=== PATIENT | male | born 1950 | race Caucasian/White ===

== ENCOUNTER 2019-10-30 15:49 | Inpatient (IN) ==
--- OUTSIDE RECORDS SUMMARY | 2019-10-30 15:53 | External Medical Summary | Continuity of Care Document ---
:1950 Author Name Julio M.Mike Address Unavailable Unavailable , Care Team Providers Name Role Phone Unavailable Unavailable Unavailable PCP, UNKNOWN Unavailable Unavailable Assessments Assessed Problems:Encounter for preventive health examination Problems Diverticulosis (562.10) (K57.90) Colon polyps (211.3) (K63.5) Allergies and Adverse Reactions Allergy history not documented Medications Medications not documented Procedures Procedures not documented Immunizations Immunizations not documented Plan of Treatment Planned Observations Planned Goals not documented Results No Known Results Results not documented
[2019-10-30] MEDS ORDERED: SODIUM CHLORIDE 0.9% 1000ML 500 ML IV ONE (17:03)
--- NOTE | 2019-10-30 17:05 | Emergency Department Note ---
Impression & Plan Acetabular fracture, Pelvic fracture, Rib fracture, Hemorrhage, peritoneal ED Provider Note Provider: Osman Thayer MD DATE OF SERVICE: 10/30/2019 CHIEF COMPLAINT: Fall HISTORY OF PRESENT ILLNESS: Patient is a 69-year-old gentleman history of hypothyroidism and hypertension presenting today after any foot fall from a ladder via ambulance. Patient states he was trimming branches and a branch fell knocked him off the ladder to the ground. About 8 to 9 feet he says. Does not member strike his head but states his glasses are been. Denies headache or visual change. States the c-collar is long comfortably denies neck pain. Complaining of left hip pain. Denies use of anticoagulants. Does report aspirin usage. Denies head neck or back pain at this time. Patient states he ell on his right side again is having left hip pain 8 out of 10 with movement. Not at rest. Pain is been left inguinal area. Denies injury to the knees calves or feet. Denies numbness in the lower extremities. Denies abdominal pain or shortness of breath. Patient does report a bit of right slight axillary discomfort on palpation. REVIEW OF SYSTEMS: A total of 10 review of systems was obtained and negative except as stated above in the HPI. PAST MEDICAL HISTORY: As noted above MEDICATIONS: Reviewed list includes aspirin SOCIAL HISTORY: , former smoker, lives at home PHYSICAL EXAM: GENERAL: alert and oriented in no acute distress on stretcher in c-collar Head: normocephalic and atraumatic EYES: No injection, discharge or icterus. PERRL NECK: Trachea midline. Supple. In c-collar without posterior midline tenderness. ENT: Mucous membranes pink and moist. No obvious dental injury. LUNGS: Airway patent. No retractions. Breath sounds clear HEART: Regular rate and rhythm. No chest wall tenderness ABDOMEN: Soft and non-tender, without guarding or rebound. SKIN: Acyanotic, warm, dry, without rashes EXTREMITIES: Without swelling, tenderness or deformity except with ROM of the left lower extremity with pain in left inguinal region NEUROLOGICAL: No focal deficits. No aphasia. No facial droop or slurred speech. CONTINUOUS CARDIAC MONITORING: was ordered and showed a heart rate of 82 bpm in normal sinus rhythm Patient's hypertension was referred to the hospitalist PDMP was checked without noted issue. GCS 15. HOSPITAL COURSE: 1652 Patient was first seen and H&P performed. 1907 patient reassessed and complained of little bit of right lower chest wall pain. Updated on CT findings. [address] Wesley who recommended a CT of the hip and medical admission and he would see them tomorrow. 1929 Patient reassessed and updated. Patient was agreed with this plan. Discussed with him utilizing some Tylenol for pain. 1954 discussed with the hospitalist. Patient's laboratory studies and imaging reviewed. Differential includes Fracture, dislocation, contusion, intra-abdominal, pneumothorax, intrathoracic, intracranial, neurologic, compartment syndrome, rhabdomyolysis, as well as other pathologies. IMPRESSION/MEDICAL DECISION MAKING: Patient presents after mechanical fall when he was struck by a limb. Little discomfort to the c-collar but denies neck pain. Denies head pain but is on aspirin. States his glasses were bent and given this CT the head and neck were completed. Significant pain in the left inguinal region prickly with movement. Good range of motion I doubt dislocation of the hip. Lower suspicion for fracture here as there is no obvious deformity of the left lower extremity. X- ray was obtained through here. CT abdomen pelvis obtained to look for possible occult intra-abdominal pathology. Chest x-ray obtained and have a lower suspicion for pneumo or hemothorax. Doubt acute cardiac or blunt injury. Basic labs were obtained. No significant pain rest and location of the left inguinal region of the pain without masses somewhat concerning for possible musculoskeletal injury. Denies any pain at rest only with movement and thus did not request pain medication at the initial evaluation time. Labs with borderline anemia. Slight leukocytosis 12.6 of unclear etiology is noted. No significant lecture that of maldescent or renal dysfunction. AST slightly elevated. No evidence of bilirubin elevation or ALT alk phos elevation. CT then cervical spine likely without acute traumatic injury noted. CT the abdomen pelvis shows evidence of nondisplaced right eighth ninth rib fractures and a mildly displaced left posterior 12th rib fracture. Patient is satting well. Vertical and comminuted fracture of left sacral roberth is noted left superior and inferior pubic ring fractures that extend through the medial wall the less acetabulum. Some intrapelvic but extraperitoneal hemorrhage around the pubic ring fractures are noted without evidence of active extravasation. Some mild intramuscular hemorrhage left without active extravasation is noted on the CT per the report as well. On reassessment patient was updated. Declined pain medication at this time but states again he was having little bit more of right lower chest wall pain. Discussed orthopedics who felt comfortable evaluating the acetabular fracture and pelvic fracture here. Believe we can monitor his hemoglobin here regarding the pelvic hematoma at this time and discussed with hospitalist DIAGNOSIS: Fall, multiple closed rib fractures, pelvic fracture, acetabular fracture DISPOSITION: Admission Past Med/Surg History Medical History (Updated 10/30/19 @ 23:12 by Dalila Reed RN) DVT (deep venous thrombosis) HTN (hypertension) Syncopal episodes Social History Preferred Language: Tajik Communication Ability: Effective Lead Radiologic Technologist Required: No Beliefs That Will Affect Care: None Current Living Situation: Spouse Other Information That Helps Us Care for You: No Feels Safe at Home: Yes Safety Concerns: Feels Safe At This Time Smoking Status: Former smoker Hx Alcohol Use: Yes Alcohol type: beer, wine and hard liquor Hx Substance Use: No Allergies Allergies Allergy/AdvReac Type Severity Reaction Status Date / Time No Known Allergies Allergy Verified 10/30/19 16:39 Home Meds Home Medications Medication Instructions Recorded Confirmed ascorbic acid (vitamin C) [Vitamin 1,000 mg PO DAILY 10/30/19 10/30/19 C] aspirin 650 mg PO DIRECTED PRN 10/30/19 10/30/19 aspirin 650 mg PO HS 10/30/19 10/30/19 calcium carbonate [Calcium 600] 600 mg PO BID 10/30/19 10/30/19 cholecalciferol (vitamin D3) 2,000 mcg PO DAILY@1200 10/30/19 10/30/19 [Vitamin D3] glucosamine sulfate [Glucosamine] 2,000 mg PO DAILY@1200 10/30/19 10/30/19 hydrochlorothiazide 12.5 mg PO QAM 10/30/19 10/30/19 ibuprofen 600 mg PO QAM 10/30/19 10/30/19 levothyroxine 112 mcg PO QAM 10/30/19 10/30/19 lisinopril 5 mg PO QAM 10/30/19 10/30/19 lutein 20 mg PO DAILY 10/30/19 10/30/19 omega 5-hdc-hsc-fish oil [Fish Oil] 1 cap PO DAILY 10/30/19 10/30/19 sildenafil 100 mg PO DAILY PRN 06/19/20 06/19/20 vitamin E 400 unit PO DAILY 10/30/19 10/30/19 Results & Data (ED) Vital Signs Vital Signs - 24 hr 10/30/19 15:56 10/30/19 15:59 10/30/19 16:00 Temperature Temperature Source Pulse Rate 73 69 75 Pulse Rate from SpO2 Sensor 73 71 74 Respiratory Rate 17 16 18 Respiratory Effort / Characteristics Respiratory Depth Respiratory Pattern Blood Pressure 140/83 Blood Pressure Mean 95 Blood Pressure Position Pulse Oximetry 98 97 97 Oxygen Delivery Method Sepsis Recent Fever Within 48 Hours Sepsis New/Unexplained Change in Mental Status Sepsis Action Taken by Nursing 10/30/19 16:06 10/30/19 16:30 10/30/19 17:00 Temperature 36.9 C Temperature Source Oral Pulse Rate 71 75 70 Pulse Rate from SpO2 Sensor 76 71 Respiratory Rate 18 17 12 Respiratory Effort / Characteristics Non-Labored Spontaneous Respiratory Depth Normal Respiratory Pattern Regular Blood Pressure 140/83 Blood Pressure Mean 102 Blood Pressure Position Lying Pulse Oximetry 98 98 99 Oxygen Delivery Method Room Air Sepsis Recent Fever Within 48 Hours No Sepsis New/Unexplained Change in Mental Status No Sepsis Action Taken by Nursing No Action Required 10/30/19 17:16 10/30/19 17:30 10/30/19 17:31 Temperature Temperature Source Pulse Rate 71 70 70 Pulse Rate from SpO2 Sensor 72 67 67 Respiratory Rate 15 12 13 Respiratory Effort / Characteristics Respiratory Depth Respiratory Pattern Blood Pressure 143/85 H 136/82 Blood Pressure Mean 107 111 Blood Pressure Position Pulse Oximetry 99 99 99 Oxygen Delivery Method Room Air Sepsis Recent Fever Within 48 Hours Sepsis New/Unexplained Change in Mental Status Sepsis Action Taken by Nursing 10/30/19 17:32 10/30/19 18:15 10/30/19 18:30 Temperature Temperature Source Pulse Rate 66 79 74 Pulse Rate from SpO2 Sensor 62 76 75 Respiratory Rate 15 19 18 Respiratory Effort / Characteristics Respiratory Depth Respiratory Pattern Blood Pressure 156/91 H Blood Pressure Mean 102 Blood Pressure Position Pulse Oximetry 99 99 100 Oxygen Delivery Method Sepsis Recent Fever Within 48 Hours Sepsis New/Unexplained Change in Mental Status Sepsis Action Taken by Nursing 10/30/19 19:01 10/30/19 19:31 10/30/19 20:01 Temperature Temperature Source Pulse Rate 76 76 80 Pulse Rate from SpO2 Sensor 77 76 79 Respiratory Rate 18 13 14 Respiratory Effort / Characteristics Respiratory Depth Respiratory Pattern Blood Pressure 156/87 H 159/77 H 132/84 Blood Pressure Mean 132 109 105 Blood Pressure Position Pulse Oximetry 100 99 98 Oxygen Delivery Method Room Air Room Air Room Air Sepsis Recent Fever Within 48 Hours Sepsis New/Unexplained Change in Mental Status Sepsis Action Taken by Nursing 10/30/19 20:31 Temperature Temperature Source Pulse Rate 75 Pulse Rate from SpO2 Sensor 76 Respiratory Rate 19 Respiratory Effort / Characteristics Respiratory Depth Respiratory Pattern Blood Pressure 151/80 H Blood Pressure Mean 87 Blood Pressure Position Pulse Oximetry 100 Oxygen Delivery Method Room Air Sepsis Recent Fever Within 48 Hours Sepsis New/Unexplained Change in Mental Status Sepsis Action Taken by Nursing Laboratory Data Result diagrams: 10/30/19 17:14 10/30/19 17:14 Lab Results 10/30/19 10/30/19 10/30/19 Range/Units 17:14 17:14 17:14 WBC 12.63 H (4.8-10.8) K/uL RBC 4.21 L (4.7-6.1) M/uL Hgb 13.6 L (14.0-18.0) g/dL Hct 40.3 L (42-52) % MCV 95.7 (80-100) fL MCH 32.3 (25-34) pg MCHC 33.7 (32-36) g/dL RDW Std Deviation 47.1 H (36.4-46.3) fL RDW Coeff of Celestino 13.4 (11.5-14.5) % Plt Count 188 (130-400) K/uL MPV 10.2 (7.4-10.4) fL Immature Gran % (Auto) 0.7 % Neut % (Auto) 86.0 % Lymph % (Auto) 5.0 % [place] % (Auto) 7.2 % Eos % (Auto) 0.9 % Baso % (Auto) 0.2 % Immature Gran # (Auto) 0.09 H (0.00-0.02) K/uL Neut # (Auto) 10.86 H (1.4-6.5) K/uL Lymph # (Auto) 0.63 L (1.2-3.4) K/uL [place] # (Auto) 0.91 H (0.11-0.59) K/uL Eos # (Auto) 0.11 (0-0.5) K/uL Baso # (Auto) 0.03 (0-0.2) K/uL PT 10.9 (9.0-12.0) Seconds INR 1.0 (0.9-1.1) Sodium 141 (136-145) mmol/L Potassium 3.5 (3.5-5.1) mmol/L Chloride 109 H (98-107) mmol/L Carbon Dioxide 25 (21-32) mmol/L Anion Gap 7.0 (3-11) BUN 17 (7-18) mg/dl Creatinine 0.92 (0.6-1.4) mg/dl Est Cr Clr Drug Dosing 76.0 ml/min Est GFR ( Amer) 96.6 Est GFR (Non-Af Amer) 83.4 BUN/Creatinine Ratio 18.7 (10-20) Glucose 107 H (70-99) mg/dl Calcium 8.8 (8.5-10.1) mg/dl Total Bilirubin 0.5 (0.2-1) mg/dl AST 77 H (15-37) U/L ALT 64 (12-78) U/L Alkaline Phosphatase 67 (45-117) U/L Total Protein 7.4 (6.4-8.2) gm/dl Albumin 3.7 (3.4-5.0) gm/dl Globulin 3.7 (2.5-4.0) gm/dl Albumin/Globulin Ratio 1.0 (0.9-2) Administered Medications Acetaminophen (Ofirmev) 1,000 mg IV Q8H DEE Stop: 11/02/19 20:59 Last Admin: 10/30/19 21:30 Dose: Not Given Documented by: [id number] Sodium Chloride (Nss 1000ml) 1,000 mls @ 125 mls/hr IV .Q8H DEE Stop: 11/29/19 20:59 Last Admin: 10/30/19 22:47 Dose: 125 mls/hr Documented by: [id number] Ioversol (Optiray 320 100ml) 94 ml IV ONCE PRN PRN Reason: Interaction Checking Stop: 11/03/19 17:58 Last Admin: 10/30/19 18:00 Dose: 94 ml Documented by: [id number] Discontinued Medications Acetaminophen (Tylenol) 1,000 mg PO NOW STA Stop: 10/30/19 19:59 Last Admin: 10/30/19 20:04 Dose: 1,000 mg Documented by: [id number] Sodium Chloride (Nss 1000ml) 500 mls @ 999 mls/hr IV .Q31M ONE Stop: 10/30/19 17:33 Last Infusion: 10/30/19 17:57 Dose: 0 mls/hr Documented by: [id number] Admin: 10/30/19 17:18 Dose: 999 mls/hr Documented by: [id number] Desmopressin Acetate 20 mcg/ (Sodium Chloride) 55 mls @ 100 mls/hr IV NOW STA Stop: 10/30/19 21:21 Last Infusion: 10/30/19 22:12 Dose: 0 mls/hr Documented by: [id number] Admin: 10/30/19 21:33 Dose: 100 mls/hr Documented by: [id number] Discharge Plan Visit Data *Final* Discharge Date/Time: 10/30/19 22:13 Chief Complaint: Fall Stated Complaint: FALL 8' FROM LADDER, L HIP PAIN ED Provider: Osman Thayer Discharge Problem: Acetabular fracture, Pelvic fracture, Rib fracture, Hemorrhage, peritoneal Patient Disposition: Admitted As Inpatient Discharge Instructions Interventions: ED Discharge Assessment Last Done: 10/30/19 22:13 Discharge Problem: Acetabular fracture Qualifiers: Encounter type: initial encounter Sublocation of acetabulum: medial wall Fracture type: closed Fracture alignment: nondisplaced Laterality: left Qualified Code(s): S32.475A - Nondisplaced fracture of medial wall of left acetabulum, initial encounter for closed fracture Pelvic fracture Qualifiers: Encounter type: initial encounter Pelvic bone location: multiple parts Fracture type: closed Fracture alignment: without disruption of pelvic ring Qualified Code(s): S32.82XA - Multiple fractures of pelvis without disruption of pelvic ring, initial encounter for closed fracture Rib fracture Qualifiers: Encounter type: initial encounter Rib fracture type: multiple ribs Fracture type: closed Laterality: bilateral Qualified Code(s): S22.43XA - Multiple fractures of ribs, bilateral, initial encounter for closed fracture
[2019-10-30 17:25] LABS: Basophils # (auto) 0.03 K/uL (0-0.2); Basophils % (auto) 0.2 %; Eosinophils # (auto) 0.11 K/uL (0-0.5); Eosinophils % (auto) 0.9 %; Hematocrit (blood only) 40.3 % (42-52); Hemoglobin 13.6 g/dL (14.0-18.0); Immature Granulocytes # (auto) 0.09 K/uL (0.00-0.02); Immature Granulocytes % (auto) 0.7 %; Lymphocytes # (auto) 0.63 K/uL (1.2-3.4); Mean Corpuscular Hemoglobin 32.3 pg (25-34); Mean Corpuscular Hgb Conc 33.7 g/dL (32-36); Mean Corpuscular Volume 95.7 fL (80-100); Mean Platelet Volume 10.2 fL (7.4-10.4); Monocytes # (auto) 0.91 K/uL (0.11-0.59); Monocytes % (auto) 7.2 %; Neutrophils # (auto) 10.86 K/uL (1.4-6.5); Platelet Count 188 K/uL (130-400); RDW Coefficient of Variation 13.4 % (11.5-14.5); RDW Standard Deviation 47.1 fL (36.4-46.3); Red Blood Count 4.21 M/uL (4.7-6.1); White Blood Count 12.63 K/uL (4.8-10.8)
[2019-10-30 17:36] LABS: Prothrombin Time 10.9 Seconds (9.0-12.0)
[2019-10-30 17:42] LABS: Albumin Level 3.7 gm/dl (3.4-5.0); BUN Creatinine Ratio 18.7 (10-20); Calcium 8.8 mg/dl (8.5-10.1); Est GFR (African American) 96.6; Est GFR (Non-African American) 83.4; Potassium 3.5 mmol/L (3.5-5.1)
[2019-10-30 17:45] LABS: Bilirubin,Total 0.5 mg/dl (0.2-1); Globulin 3.7 gm/dl (2.5-4.0); Total Protein 7.4 gm/dl (6.4-8.2)
[2019-10-30] MEDS ORDERED: IOVERSOL 100ml IV PRN (17:59)
--- NOTE | 2019-10-30 18:27 | CT Scan Report ---
CT SCAN OF THE BRAIN WITHOUT IV CONTRAST CLINICAL HISTORY: Fall. Headache. COMPARISON STUDY: No priors. TECHNIQUE: Unenhanced axial CT scan of the brain is performed from the vertex to the skull base. A do se lowering technique was utilized adhering to the principles of ALARA. FINDINGS: Brain parenchyma: There are age-related involutional changes noting minimal subcortical and perivent ricular microangiopathic change. There is no hemorrhage, mass effect, or evidence of acute territoria l ischemia by CT criteria. Pichardo-white matter differentiation is preserved. No extra-axial fluid colle ction is seen. Ventricles, sulci, cisterns: Prominent secondary to involutional change. Intracranial vasculature: There is atherosclerotic calcification of the cavernous carotid and vertebr al arteries. Calvarium: The skeletal structures are osteopenic. No depressed calvarial fracture is identified. Sinuses and mastoids: Trace mucosal thickening is noted in the right maxillary antrum. There is mild mucosal thickening within the left frontal sinus and the ethmoid sinuses. The mastoid air cells are w ell pneumatized. Orbits: The bony orbits are grossly intact. IMPRESSION: There is no hemorrhage, mass effect, or evidence of acute territorial ischemia by CT thomas khanna. ACT 112: Negative or not required by law. Electronically signed by: Leo العلي M.D. 10/30/2019 6:26 PM
--- NOTE | 2019-10-30 18:35 | CT Scan Report ---
CT SCAN OF THE CERVICAL SPINE CLINICAL HISTORY: Trauma. Fall. COMPARISON STUDY: No priors. TECHNIQUE: CT scan of the cervical spine is performed from the skull base to the upper thoracic spine . Images are reviewed in the axial, sagittal, and coronal planes. IV contrast was not administered fo r this examination. A dose lowering technique was utilized adhering to the principles of ALARA. CT DOSE: 1878.63 mGy.cm FINDINGS: Skeletal structures: The skeletal structures are osteopenic. There is no evidence of fracture or subl uxation involving the cervical spine. Vertebral body height is maintained. There is minimal anterolis thesis at C5-C6 and C7-T1. Small anterior osteophytes are seen throughout. The odontoid process and l ateral masses are intact. The atlantoaxial articulation is preserved noting productive degenerative c hange. The spinous processes appear intact. Intervertebral discs: There is moderate disc space narrowing at C3-C4, C4-C5, and C6-C7. Endplate scl erosis is noted at C6-C7. Central canal: Posterior disc osteophyte complexes at C4-C5 and C6-C7 may contribute to mild acquired compromise of the central canal. Soft tissues: The prevertebral and paraspinous soft tissues are within normal limits. Calcified sialo liths are noted in the left parotid gland. Mild atherosclerotic calcification is seen in the carotid bulbs. There are numerous calcified tonsilloliths. Calvarium: The visualized calvarium at the skull base appears intact. Brain parenchyma: Partially visualized brain parenchyma the skull base is within normal limits. Sinuses and mastoids: There is trace mucosal thickening within the maxillary antra. The mastoid air c ells are well pneumatized. Lung apices: Clear as visualized. IMPRESSION: 1. There is no evidence of fracture or subluxation involving the cervical spine. 2. Osteopenia and spondylotic change as above. ACT 112: Negative or not required by law. Electronically signed by: Leo العلي M.D. 10/30/2019 6:33 PM
--- NOTE | 2019-10-30 18:46 | CT Scan Report ---
CT SCAN OF THE ABDOMEN AND PELVIS WITH IV CONTRAST CLINICAL HISTORY: Trauma. Fall. Low back and left groin pain. COMPARISON STUDY: No priors. TECHNIQUE: Following the IV administration of 94 cc of Optiray 320, CT scan of the abdomen and pelvi s is performed from the lung bases to the proximal femora. Images are reviewed in the axial, sagittal , and coronal planes. IV contrast was administered without complication. A dose lowering technique wa s utilized adhering to the principles of ALARA. FINDINGS: Lung bases: The heart is normal in size and without pericardial effusion. The coronary arteries are d ensely calcified. There is a small hiatal hernia. Calcified mediastinal lymph nodes are partially vis ualized. No airspace consolidation, pleural effusion, or pneumothorax is seen at the lung bases. Ther e are scattered calcified granulomas. Dependent atelectasis is observed. Liver: The contrast-enhanced liver is normal in size, contour, and attenuation. There is no intrahepa tic biliary ductal dilatation. The hepatic veins and portal veins are patent. There are numerous calc ified hepatic granulomas. Gallbladder: Unremarkable. Spleen: Normal in size and attenuation. There are numerous calcified splenic granulomas. Pancreas: Unremarkable. Adrenal glands: Unremarkable. Kidneys: The contrast enhanced kidneys are normal in size and without hydronephrosis. The kidneys enh ance symmetrically. Abdominal vasculature: The abdominal aorta is normal in course and caliber noting advanced atheroscle rotic calcification. Bowel: There is moderate colonic diverticulosis without CT evidence of acute diverticulitis. No bowel obstruction is seen. Mild fecal retention is noted throughout the colon. The appendix is normal as visualized. Peritoneum: There is no intraperitoneal free air or abdominal ascites. There is a small fat-containin g umbilical hernia. Lymphadenopathy: None. Pelvic viscera: The prostate gland is mildly enlarged and heterogeneous. The bladder is normal as linn ged. There is intrapelvic extraperitoneal hemorrhage identified around the left pubic ring fractures. No active extravasation is identified at the time of examination. Intramuscular hemorrhage is noted within the left obturator internus. Trace blood is also seen tracking along the left iliac chain. The re is also mild presacral hemorrhage. Skeletal structures: The skeletal structures are osteopenic. There are comminuted left superior and i nferior. The keith fractures. The superior pubic ring fracture extends through the medial wall of the left acetabulum. The lumbar spine and proximal femora appear intact. There is a comminuted fracture o f the left sacral ala. There are nondisplaced right lateral 8th and 9th rib fractures. There is a mil dly displaced left posterior 12th rib fracture. No lytic or blastic lesions are seen. IMPRESSION: 1. There are comminuted fractures of the left superior and inferior pubic ring which extends through the medial wall of the left acetabulum. 2. There is a vertically oriented and comminuted fracture of the left sacral ala. 3. Right lower rib fractures as above. 4. There is intrapelvic extraperitoneal hemorrhage identified around the pubic ring fractures, as wel l as minimal presacral hemorrhage. No active extravasation is identified at the time of examination. 5. Intramuscular hemorrhage is noted within the left obturator internus. 6. There is no evidence of solid organ injury in the abdomen or pelvis. 7. Moderate colonic diverticulosis without CT evidence of acute diverticulitis. 8. Additional findings as above. ACT 112: Negative or not required by law. Electronically signed by: Leo العلي M.D. 10/30/2019 6:45 PM
--- NOTE | 2019-10-30 19:35 | XRay Report ---
SINGLE VIEW CHEST CLINICAL HISTORY: Fall. FINDINGS: An AP, portable, upright chest radiograph is obtained. No prior studies are available for c omparison at the time of dictation. The examination is degraded by portable technique, apical lordoti c positioning, and patient rotation. The cardiomediastinal silhouette is unremarkable noting atheros clerotic calcification of the thoracic aorta. There is mild bibasilar atelectasis. The lungs and pleu ral spaces are otherwise clear. No pneumothorax is seen. The bony thorax is grossly intact. IMPRESSION: No active disease in the chest. ACT 112: Negative or not required by law. Electronically signed by: Leo العلي M.D. 10/30/2019 7:34 PM
[2019-10-30] MEDS ORDERED: ACETAMINOPHEN 500 MG TAB PO STA (19:58)
[2019-10-30] MEDS ORDERED: MoRPHine SULFATE 4 MG/ML 1 ML CARP\\VIAL IV PRN (20:49)
[2019-10-30] MEDS ORDERED: DESMOPRESSIN ACETATE 20 MCG in SODIUM CHLORIDE 0.9% 50 ML IV STA (20:49)
--- NOTE | 2019-10-30 20:51 | CT Scan Report ---
CT SCAN OF THE LEFT HIP WITHOUT IV CONTRAST CLINICAL HISTORY: Left hip fracture. COMPARISON STUDY: Pelvic CT performed concurrently on 10/30/2019. TECHNIQUE: CT scan of the left hip is performed from the bony pelvis to the proximal femur. Images ar e reviewed in the axial, sagittal, and coronal planes. IV contrast was not administered specifically for this examination. There is IV contrast present from the concurrently performed abdominal CT. A do se lowering technique was utilized adhering to the principles of ALARA. FINDINGS: The skeletal structures are osteopenic. There is a comminuted and vertically oriented fract ure of the left sacral ala. There are comminuted fractures of the left superior and inferior pubic ri ng. The superior pubic ring fracture extends through the medial wall of the left acetabulum. There is surrounding hemorrhage which is predominantly intrapelvic/extraperitoneal. No additional fracture is identified. The left proximal femur is intact. No lytic or blastic lesion is seen. Intramuscular hem orrhage is noted within the obturator internus. There is also mild presacral hemorrhage. Trace active extravasation is identified along the left pelvic sidewall on image #43. The prostate gland is enlar ged. The bladder is normal as visualized. Diverticulosis is noted in the sigmoid colon. There is no l eft pelvic sidewall or inguinal adenopathy. IMPRESSION: 1. There is a vertically oriented and comminuted fracture of the left sacral ala. 2. Comminuted left superior and inferior pubic ring fractures which extend through the medial wall of the left acetabulum. 3. There is intrapelvic extraperitoneal hemorrhage identified around the pubic ring fractures. Trace active extravasation is noted. 4. Intramuscular hematoma is noted within the left obturator internus. 5. Additional findings as above. ACT 112: Negative or not required by law. Electronically signed by: Leo العلي M.D. 10/30/2019 8:50 PM
--- NOTE | 2019-10-30 20:52 | History & Physical Report ---
Date of Service October 30, 2019 Assessment & Plan (1) Acetabular fracture: 69-year-old male with a past medical history significant for hypertension and hypothyroidism admitted for several rib and pelvic fractures and pelvic extraperitoneal hemmorhage. Acetabular fracture with extraperitoneal hemorrhage: Morphine 4mg IV q4h PRN pain. Tylenol 1000mg IV q8h scheduled. Dr. Wesley aware and will see in AM. Will need PT/OT evaluations before discharge, likely inpatient rehab following discharge. NPO at midnight in the event of surgery tomorrow; NSS @ 125cc/hr. Given history of asa and NSAID use, will give DDAVP 20mg IV and repeat CBC morning to continue to monitor for signs of further bleeding. Rib Fracture: Pain control as above. HTN: Normotensive on admission. Hold PO medications for now. Code Status: FULL CODE FEN/GI: NPO at midnight, NSS @ 125cc/hr DVT ppx: contraindicated in acute bleed, SCDs Dispo: med/surg, Ortho consult (2) Pelvic fracture: (3) Rib fracture: (4) Hemorrhage, peritoneal: History of Present Illness Primary Care Provider: Jamal Muller 69-year-old male with a past medical history significant for hypertension and hypothyroidism presented to the ED after a fall from a ladder while trimming branches from his tree at a height of 8 to 9 feet. Presented via EMS with c- collar in place. Does not recall hitting his head but reports that he did bend his glasses, denies headache, visual changes, dizziness. On arrival patient's vitals were stable, saturating well on room air, complaining of left hip pain 8/10 with movement, no pain at rest. Also with left inguinal area pain, right upper chest wall pain. CT head, neck, abdomen, pelvis, hip performed; comminuted fracture of the left superior and inferior pubic ring extending through the medial wall of the left acetabulum, comminuted fracture of the left sacral ala, right sided lateral eighth and ninth rib fractures, intrapelvic extraperitoneal hemorrhage, left obturator internus hemorrhage noted. No solid organ injury noted in the abdomen or pelvis, no pneumothorax, no flail chest. Initial lab work showed leukocytosis to 12.63, hemoglobin 13.6, elevated AST to 77. Patient was given Tylenol 1000 mg PO, 1 L NSS bolus. Orthopedic team accepted patient to their service, hospitalist team was consulted for admission. On my interview patient is without pain at rest. He had recently received his Tylenol at that time. Of note, has a longstanding history of NSAID and aspirin use for back pain. Takes ibuprofen 400 mg daily in the morning, and often aspirin 325 mg (2 tablets) at night. No history of easy bleeding or bruising. At time of my interview denies shortness of breath, chest pain, nausea, vomiting, constipation or diarrhea, fevers or chills. No numbness or tingling of any extremities. Patient was staying still during my exam so as not to provoke pain. Allergies Allergy/AdvReac Type Severity Reaction Status Date / Time No Known Allergies Allergy Verified 10/30/19 16:39 Home Medications Home Medications Medication Instructions Recorded Confirmed Type ascorbic acid (vitamin C) [Vitamin 1,000 mg PO DAILY 10/30/19 10/30/19 History C] aspirin 650 mg PO DIRECTED PRN 10/30/19 10/30/19 History aspirin 650 mg PO HS 10/30/19 10/30/19 History calcium carbonate [Calcium 600] 600 mg PO BID 10/30/19 10/30/19 History cholecalciferol (vitamin D3) 2,000 mcg PO DAILY@1200 10/30/19 10/30/19 History [Vitamin D3] glucosamine sulfate [Glucosamine] 2,000 mg PO DAILY@1200 10/30/19 10/30/19 History hydrochlorothiazide 12.5 mg PO QAM 10/30/19 10/30/19 History ibuprofen 600 mg PO QAM 10/30/19 10/30/19 History levothyroxine 112 mcg PO QAM 10/30/19 10/30/19 History lisinopril 5 mg PO QAM 10/30/19 10/30/19 History lutein 20 mg PO DAILY 10/30/19 10/30/19 History omega 2-wjr-sng-fish oil [Fish Oil] 1 cap PO DAILY 10/30/19 10/30/19 History sildenafil 100 mg PO DAILY PRN 10/30/19 10/30/19 History vitamin E 400 unit PO DAILY 10/30/19 10/30/19 History Past Med/Surg History Medical History (Updated 11/01/19 @ 17:12 by Florecita Cosby, PA-C) DVT (deep venous thrombosis) HTN (hypertension) Hypothyroidism Syncopal episodes Social History Preferred Language: Israeli Communication Ability: Effective 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 Beliefs That Will Affect Care: None marital status: Current Living Situation: Spouse Other Information That Helps Us Care for You: No Feels Safe at Home: Yes Safety Concerns: Feels Safe At This Time Smoking Status: Former smoker Hx Alcohol Use: Yes Alcohol type: beer, wine and hard liquor Hx Substance Use: No Review of Systems Review of Systems: All systems reviewed & are unremarkable except as noted in HPI & below Constitutional: no fever, no chills and no malaise Respiratory: no cough and no dyspnea Cardiovascular: no chest pain, no palpitations and no edema Gastrointestinal: no abdominal pain, no constipation and no diarrhea/loose stools Physical Exam Constitutional: WD/WN, vitals as above Eyes: PERRL, conjunctivae normal, anicteric sclerae ENMT: external ear and nose normal, oropharynx normal Neck: normal visual inspection Respiratory: normal respiratory effort, lungs clear to auscultation Cardiovascular: RRR, no murmur, no edema Gastrointestinal (Abdomen): normal bowel sounds, soft, nontender, no hepatosplenomegaly Musculoskeletal: no cyanosis or clubbing. Unable to test muscle strength due to pain 2/2 fractures Skin: no rashes, warm and dry Neurologic: AAOx3, normal speech. PERRLA, EOMI, no nystagmus. Normal visual acuity bilaterally. Bilateral UE, LE, and face without sensory deficits. II-XII intact bilaterally. No tremor. Psychiatric: A+Ox3, euthymic affect Results & Data Results & Data ([facility]) Vital Signs (Past 12 Hours) Vital Signs Temp Pulse Resp BP Pulse Ox 10/30/19 20:31 75 19 151/80 H 100 10/30/19 20:01 80 14 132/84 98 10/30/19 19:31 76 13 159/77 H 99 10/30/19 19:01 76 18 156/87 H 100 10/30/19 18:30 74 18 156/91 H 100 10/30/19 18:15 79 19 99 10/30/19 17:32 66 15 99 10/30/19 17:31 70 13 136/82 99 10/30/19 17:30 70 12 99 10/30/19 17:16 71 15 143/85 H 99 10/30/19 17:00 70 12 99 10/30/19 16:30 75 17 98 10/30/19 16:06 36.9 C 71 18 140/83 98 10/30/19 16:00 75 18 97 10/30/19 15:59 69 16 97 10/30/19 15:56 73 17 140/83 98 Code Status & VTE Plan VTE Prophylaxis Plan VTE Prophylaxis will be ordered: Yes Supervising Physician Co-Signing Physician Notes Attending addendum: I have physically seen this patient, have supervised the medical residents activities, and agree with the H&P unless as otherwise noted. Assessment and Plan: Acetabular fracture with extraperitoneal hemorrhage/rib fractures- NPO NSS 125 mils per hour Hold aspirin and NSAIDs. DDAVP 25 mg IV x1 Acetaminophen 1000 mg IV every 8 hours PRN mild pain or temperature. Morphine 4 mg IV every 4 hours as needed severe pain. Dr. Wesley, [facility] aware and will see patient Follow serial CBC with differential, BMP and magnesium level. Remaining orders and notations as noted. Resident Activity Tracking Resident Involvement: Resident Care Provided Care Provided: Adult Hospital Medicine
[2019-10-30] MEDS: ACETAMINOPHEN 1000 MG/100 ML IV IV SCH (21:30)
[2019-10-30] MEDS ORDERED: POLYETHYLENE (MIRALAX) 17 GM PACK PO PRN (22:38)
[2019-10-30] MEDS ORDERED: ONDANSETRON INJ 2 MG/ML 2 ML VIAL IV PRN (22:38)
[2019-10-30] MEDS: SODIUM CHLORIDE 0.9% 1000ML 1,000 ML IV SCH (22:47)
[2019-10-31] MEDS: SODIUM CHLORIDE 0.9% 1000ML 1,000 ML IV SCH ×2 (05:44→13:02)
[2019-10-31] MEDS: ACETAMINOPHEN 1000 MG/100 ML IV IV SCH ×3 (05:44→21:06)
[2019-10-31 06:39] LABS: Basophils # (auto) 0.02 K/uL (0-0.2); Basophils % (auto) 0.3 %; Eosinophils # (auto) 0.03 K/uL (0-0.5); Eosinophils % (auto) 0.5 %; Hemoglobin 11.4 g/dL (14.0-18.0); Immature Granulocytes # (auto) 0.01 K/uL (0.00-0.02); Immature Granulocytes % (auto) 0.2 %; Lymphocytes % (auto) 14.4 %; Mean Corpuscular Hemoglobin 31.9 pg (25-34); Mean Corpuscular Hgb Conc 33.5 g/dL (32-36); Mean Corpuscular Volume 95.2 fL (80-100); Monocytes # (auto) 0.57 K/uL (0.11-0.59); Monocytes % (auto) 9.1 %; Neutrophils # (auto) 4.71 K/uL (1.4-6.5); Neutrophils % (auto) 75.5 %; Platelet Count 155 K/uL (130-400); RDW Coefficient of Variation 13.5 % (11.5-14.5); RDW Standard Deviation 47.3 fL (36.4-46.3); Red Blood Count 3.57 M/uL (4.7-6.1); White Blood Count 6.24 K/uL (4.8-10.8)
[2019-10-31 07:08] LABS: BUN Creatinine Ratio 22.3 (10-20); Calcium 7.7 mg/dl (8.5-10.1); Est GFR (African American) 114.9; Est GFR (Non-African American) 99.1; Potassium 3.3 mmol/L (3.5-5.1)
[2019-10-31] MEDS ORDERED: POTASSIUM CHLORIDE 20 MEQ TABCR PO STA (09:18)
[2019-10-31] MEDS: LEVOTHYROXINE SODIUM 112 MCG TABLET PO SCH (10:09)
[2019-10-31 10:19] LABS: Bilirubin Direct 0.2 mg/dl (0-0.2); Bilirubin,Total 0.9 mg/dl (0.2-1); Magnesium 1.9 mg/dl (1.8-2.4); Total Protein 5.8 gm/dl (6.4-8.2)
--- NOTE | 2019-10-31 10:53 | Hospitalist Progress Note ---
Date of Service October 31, 2019 Assessment & Plan (1) Acetabular fracture: 69-year-old male with a past medical history significant for hypertension and hypothyroidism admitted for several rib and pelvic fractures and pelvic extraperitoneal hemorrhage. Imaging with CT head, neck, abdomen, pelvis, hip performed; comminuted fracture of the left superior and inferior pubic ring extending through the medial wall of the left acetabulum, comminuted fracture of the left sacral ala, right sided lateral eighth and ninth rib fractures, intrapelvic extraperitoneal hemorrhage, left obturator internus hemorrhage noted Was given DDAVP 20mg IV x 1 for bleeding -- of note, patient has been taking up to 650mg ASA in the evenings for pain --> HOLD in setting of bleeding as well as NSAIDs * Pain control: Morphine 4mg IV q4h PRN pain. Tylenol 1000mg IV q8h scheduled. * Ortho consulted -- appreciate recommendations Per Dr. Wesley, non-operative management at this time Will need to be non-weight bearing for at least 4 weeks per discussion with Dr. Wesley PT/OT pending * D/C IVF as patient not going to OR * AHA diet * CBC stable on afternoon repeat 11.4/34.0 --> 11.3/33.3 despite getting IVF * CBC in AM (2) Pelvic fracture: * Noted (3) Rib fracture: * RIGHT -- 8th, 9th and mildly displaced 12 rib fx * CXR without pneumothorax or flail chest * EKG was obtained --> reviewed, NSR without abnormality * O2 sat 100% on RA * Lidoderm patch ordered (4) HTN (hypertension): * Chronic. HCTZ, Lisinopril on hold on admission in setting of acute hem./dehydration * BP 149/83 * Monitor BP --> likely to resume in AM (5) Hypothyroidism: * Chronic. * Continue home levothyroxine 112mcg (6) Hypokalemia: * K 3.3 -- ordered 20meq KCL * RESOLVED --> 4.1 on repeat Monitor AM labs (7) Hemorrhage, peritoneal: * Monitor CBC (8) Elevated bilirubin: * T bili 1.1 up from 0.9 --> all other LFT wnl * AST initially elevated at 77 but normalized to 42 * Monitor AM labs (9) DVT prophylaxis: * SCDs * Chemoprophylaxis held in setting of bleeding/hemorrhage on imaging Admission and Anticipated Discharge Date Admission Date: October 30, 2019 Supervising Physician Co-Signing Physician Notes PA Supervision Note: I did not personally see or examine the patient today, but I verified all panda points of WEI Cosby's assessment and plan with the following exceptions/additions: None Subjective Patient evaluated this morning. Most prominent issue is pain to his right rib cage secondary to fractures. Worse when taking a breath. Tolerating pain with prn tylenol. States he is aware morphine is ordered but does not believe he needs any at this time, but is agreeable to a lidocaine patch. Awaiting evaluation by orthopedics provider this afternoon but stated his PA was around and told him that it is likely non-operative at this time. Denies fevers, chills, shortness of breath, abdominal pain, n/v/d, dysuria at this time. Review of Systems Review of Systems: All systems reviewed & are unremarkable except as noted in HPI & below Physical Exam Constitutional: WD/WN, vitals as above cooperative; no acute distress Eyes: + anicteric sclerae and PERRL Neck: trachea midline, no thyromegaly Respiratory: no respiratory distress Auscultation: lungs clear to auscultation bilaterally; no crackles, no rales and no wheezes decreased inspiratory effort secondary to pain Cardiovascular: RRR, no murmur, no edema Chest (Breasts): Additional Comments: tender to palpation R chest wall Gastrointestinal (Abdomen): normal bowel sounds, soft, nontender, no hepatosplenomegaly Musculoskeletal: no cyanosis or clubbing, extremities motor strength 5/5 Neurologic: patellar DTR's 2+ bilat, sensation intact Psychiatric: A+Ox3, euthymic affect Lymphatic: no cervical or axillary lymphadenopathy Results & Data Results & Data ([facility]) Vital Signs (Past 12 Hours) Vital Signs Temp Pulse Resp BP Pulse Ox 10/31/19 06:39 36.7 C 68 21 144/75 H 99 Laboratory Results 10/31/19 10/31/19 10/31/19 Range/Units 14:10 14:10 06:02 WBC 6.57 (4.8-10.8) K/uL RBC 3.47 L (4.7-6.1) M/uL Hgb 11.3 L (14.0-18.0) g/dL Hct 33.3 L (42-52) % MCV 96.0 (80-100) fL MCH 32.6 (25-34) pg MCHC 33.9 (32-36) g/dL RDW Std Deviation 47.3 H (36.4-46.3) fL RDW Coeff of Celestino 13.5 (11.5-14.5) % Plt Count 130 (130-400) K/uL MPV 9.5 (7.4-10.4) fL Immature Gran % (Auto) % Neut % (Auto) % Lymph % (Auto) % [place] % (Auto) % Eos % (Auto) % Baso % (Auto) % Immature Gran # (Auto) (0.00-0.02) K/uL Neut # (Auto) (1.4-6.5) K/uL Lymph # (Auto) (1.2-3.4) K/uL [place] # (Auto) (0.11-0.59) K/uL Eos # (Auto) (0-0.5) K/uL Baso # (Auto) (0-0.2) K/uL Sodium 139 (136-145) mmol/L Potassium 4.1 D (3.5-5.1) mmol/L Chloride 108 H (98-107) mmol/L Carbon Dioxide 26 (21-32) mmol/L Anion Gap 5.0 (3-11) BUN 14 (7-18) mg/dl Creatinine 0.63 (0.6-1.4) mg/dl Est Cr Clr Drug Dosing 111.0 ml/min Est GFR ( Amer) 114.9 Est GFR (Non-Af Amer) 99.1 BUN/Creatinine Ratio 21.8 H (10-20) Glucose 97 (70-99) mg/dl Calcium 7.6 L (8.5-10.1) mg/dl Magnesium 1.9 (1.8-2.4) mg/dl Total Bilirubin 1.1 H 0.9 (0.2-1) mg/dl Direct Bilirubin 0.2 (0-0.2) mg/dl AST 36 46 H (15-37) U/L ALT 42 46 (12-78) U/L Alkaline Phosphatase 55 52 (45-117) U/L Total Protein 6.0 L 5.8 L D (6.4-8.2) gm/dl Albumin 3.0 L 3.0 L (3.4-5.0) gm/dl Globulin 3.0 (2.5-4.0) gm/dl Albumin/Globulin Ratio 1.0 (0.9-2) 10/31/19 10/31/19 Range/Units 06:02 06:02 WBC 6.24 (4.8-10.8) K/uL RBC 3.57 L (4.7-6.1) M/uL Hgb 11.4 L (14.0-18.0) g/dL Hct 34.0 L (42-52) % MCV 95.2 (80-100) fL MCH 31.9 (25-34) pg MCHC 33.5 (32-36) g/dL RDW Std Deviation 47.3 H (36.4-46.3) fL RDW Coeff of Celestino 13.5 (11.5-14.5) % Plt Count 155 (130-400) K/uL MPV 10.0 (7.4-10.4) fL Immature Gran % (Auto) 0.2 % Neut % (Auto) 75.5 % Lymph % (Auto) 14.4 % [place] % (Auto) 9.1 % Eos % (Auto) 0.5 % Baso % (Auto) 0.3 % Immature Gran # (Auto) 0.01 (0.00-0.02) K/uL Neut # (Auto) 4.71 (1.4-6.5) K/uL Lymph # (Auto) 0.90 L (1.2-3.4) K/uL [place] # (Auto) 0.57 (0.11-0.59) K/uL Eos # (Auto) 0.03 (0-0.5) K/uL Baso # (Auto) 0.02 (0-0.2) K/uL Sodium 137 (136-145) mmol/L Potassium 3.3 L (3.5-5.1) mmol/L Chloride 108 H (98-107) mmol/L Carbon Dioxide 24 (21-32) mmol/L Anion Gap 6.0 (3-11) BUN 14 (7-18) mg/dl Creatinine 0.63 (0.6-1.4) mg/dl Est Cr Clr Drug Dosing 111.0 ml/min Est GFR ( Amer) 114.9 Est GFR (Non-Af Amer) 99.1 BUN/Creatinine Ratio 22.3 H (10-20) Glucose 118 H (70-99) mg/dl Calcium 7.7 L (8.5-10.1) mg/dl Magnesium (1.8-2.4) mg/dl Total Bilirubin (0.2-1) mg/dl Direct Bilirubin (0-0.2) mg/dl AST (15-37) U/L ALT (12-78) U/L Alkaline Phosphatase (45-117) U/L Total Protein (6.4-8.2) gm/dl Albumin (3.4-5.0) gm/dl Globulin (2.5-4.0) gm/dl Albumin/Globulin Ratio (0.9-2) ECG Indication: other (fib fxs, fall, hemorrhage) Rate (beats per minute): 64 Rhythm: normal sinus PG Care Time/CCT Total # of Minutes Spent Total Time Spent with Patient: Total time spent is greater than 50% in coordination of care (as documented) at patient's floor/unit and/or counseling patient: Coding Level of Care Code 19372 Subseq Hosp Care Lvl 2 Diagnoses Acetabular fracture S32.475A Encounter type: initial encounter Fracture alignment: nondisplaced Fracture type: closed Laterality: left Sublocation of acetabulum: medial wall Pelvic fracture S32.82XA Encounter type: initial encounter Fracture alignment: without disruption of pelvic ring Fracture type: closed Pelvic bone location: multiple parts Rib fracture S22.43XA Encounter type: initial encounter Fracture type: closed Laterality: bilateral Rib fracture type: multiple ribs HTN (hypertension) I10 Hypothyroidism E03.9 Hypokalemia E87.6 Hemorrhage, peritoneal K66.1 Elevated bilirubin R17 DVT prophylaxis Z29.9 (1) Rib fracture Encounter type: initial encounter Fracture type: closed Laterality: bilateral Rib fracture type: multiple ribs Qualified Code(s): S22.43XA - Multiple fractures of ribs, bilateral, initial encounter for closed fracture (2) Acetabular fracture Encounter type: initial encounter Fracture alignment: nondisplaced Fracture type: closed Laterality: left Sublocation of acetabulum: medial wall Qualified Code(s): S32.475A - Nondisplaced fracture of medial wall of left acetabulum, initial encounter for closed fracture (3) Pelvic fracture Encounter type: initial encounter Fracture alignment: without disruption of pelvic ring Fracture type: closed Pelvic bone location: multiple parts Qualified Code(s): S32.82XA - Multiple fractures of pelvis without disruption of pelvic ring, initial encounter for closed fracture
--- NOTE | 2019-10-31 11:33 | Electrocardiogram Report ---
Test Reason : Blood Pressure : / mmHG Vent. Rate : 064 BPM Atrial Rate : 064 BPM P-R Int : 158 ms QRS Dur : 082 ms QT Int : 412 ms P-R-T Axes : 030 018 000 degrees QTc Int : 425 ms Normal sinus rhythm Normal ECG No previous ECGs available Confirmed by Iain Hartman ([id number]) on 10/31/2019 11:32:41 AM Referred By: REFERRED SELF Confirmed By:Iain Hartman
[2019-10-31] MEDS ORDERED: ASPIRIN 325 MG ECTAB PO PRN (12:48)
[2019-10-31] MEDS: LIDOCAINE 5% 1 PATCH TD SCH (13:31)
[2019-10-31 14:23] LABS: Hematocrit (blood only) 33.3 % (42-52); Hemoglobin 11.3 g/dL (14.0-18.0); Mean Corpuscular Hemoglobin 32.6 pg (25-34); Mean Corpuscular Hgb Conc 33.9 g/dL (32-36); Mean Platelet Volume 9.5 fL (7.4-10.4); Platelet Count 130 K/uL (130-400); RDW Coefficient of Variation 13.5 % (11.5-14.5); RDW Standard Deviation 47.3 fL (36.4-46.3); Red Blood Count 3.47 M/uL (4.7-6.1); White Blood Count 6.57 K/uL (4.8-10.8)
[2019-10-31 15:08] LABS: BUN Creatinine Ratio 21.8 (10-20); Bilirubin,Total 1.1 mg/dl (0.2-1); Calcium 7.6 mg/dl (8.5-10.1); Est GFR (African American) 114.9; Est GFR (Non-African American) 99.1; Potassium 4.1 mmol/L (3.5-5.1)
[2019-10-31] MEDS: CALCIUM CARBONATE 1250MG TAB PO SCH (21:05)
--- NOTE | 2019-10-31 21:23 | Consultation Report ---
DATE OF CONSULTATION: 10/31/2019 PERTINENT HISTORY: This is a 69-year-old gentleman who fell off a ladder that broke while he was trimming some branches from a [place] tree at home. He landed on his right side, knocked the wind out of him and he was unable to get up. His phoned EMS and they transported him to [facility]. He was evaluated, he had CT scans, noted to have significant fractures of his acetabulum and pelvis and was admitted to the hospitalist service. Also noted was a hematoma within the obturator internus and adjacent to the pelvic fractures which required monitoring. The patient seen at bedside. He is awake and alert. All questions were answered appropriately by the patient. He denied any loss of consciousness at the time of the injury. The patient was given DDAVP 20 IV and repeat CBCs demonstrate stable reasonable CBC knowing which is appropriate for the injury sustained. PAST MEDICAL HISTORY: DVT, hypertension, syncopal episodes. PAST SURGICAL HISTORY: Noncontributory. ALLERGIES: No known drug allergies. MEDICATIONS: Please note the medication list in medical record. SOCIAL HISTORY: He is and lives with his spouse. He is a former smoker, drinks beer, wine and hard liquor on occasion. Denies drug use. He is retired. PHYSICAL EXAMINATION: This is a 69-year-old gentleman lying supine in his hospital room bed. He is awake and alert and oriented x3. Speech clear and fluent. Affect is appropriate. Focused exam of lower extremities demonstrate skin warm, dry and intact. Cap refill less than 2 seconds. Dorsalis pedis and posterior tibial pulse, 2/4 bilaterally. No significant bruising in the lower extremities. He is weak with hip flexion, extension, internal and external rotation on the left. On the right side, he has 4/5 strength with some bracing due to discomfort on the left. Heel strike is negative; however, flexion, extension, abduction, adduction and internal and external rotation at the extremes are uncomfortable and painful on the left compared to the right. He has pain with pelvic compression. No gross shear is noted. Tenderness to palpation along the left sacral ala, the left anterior, superior and inferior pubic rami and discomfort with pelvic compression medial to lateral. No obvious hematoma is able to be palpated. CT scans and radiographs were reviewed demonstrating a left sacral ala fracture, left comminuted superior and inferior pubic ring fracture, left medial acetabular wall fracture with some minor comminution without significant step off or displacement. He is also noted to have an intrapelvic hematoma and an obturator internus hematoma. IMPRESSION: 1. Left sacral ala fracture, left comminuted superior and inferior pubic ring fracture, left medial acetabular wall fracture, intrapelvic hematoma and obturator internus hematoma, nonoperative treatment recommended status post fall. RECOMMENDATION: Recommend nonweightbearing for a period of approximately 6 weeks, use of a walker or wheelchair. Recommend a intermediate facility or rehab center, for weightbearing should not be performed on the left lower extremity to assure the best result due to the acetabular fracture. Follow up with Dr. Wesley at [facility] in approximately 6 weeks for repeat radiographs of the acetabulum and pelvis. Would recommend 1 more day for monitoring hemoglobin and should he have any other physical manifestations of the hematoma may require at least a pelvic ultrasound to assess possible expansion of the intrapelvic hematoma. However, if hemoglobin and hematocrit remained stable, he has no other symptoms then he may be discharged as per the medical service. Thank you for the opportunity to consult in care of this patient. OSMIN
[2019-11-01] MEDS: ACETAMINOPHEN 1000 MG/100 ML IV IV SCH ×2 (05:43→13:16)
[2019-11-01] MEDS: LEVOTHYROXINE SODIUM 112 MCG TABLET PO SCH (05:44)
[2019-11-01 06:35] LABS: Basophils # (auto) 0.03 K/uL (0-0.2); Basophils % (auto) 0.4 %; Eosinophils # (auto) 0.11 K/uL (0-0.5); Eosinophils % (auto) 1.3 %; Hematocrit (blood only) 34.1 % (42-52); Hemoglobin 11.5 g/dL (14.0-18.0); Immature Granulocytes # (auto) 0.02 K/uL (0.00-0.02); Immature Granulocytes % (auto) 0.2 %; Lymphocytes # (auto) 0.82 K/uL (1.2-3.4); Mean Corpuscular Hemoglobin 32.5 pg (25-34); Mean Corpuscular Hgb Conc 33.7 g/dL (32-36); Mean Corpuscular Volume 96.3 fL (80-100); Mean Platelet Volume 10.2 fL (7.4-10.4); Neutrophils # (auto) 6.32 K/uL (1.4-6.5); Neutrophils % (auto) 77.1 %; Platelet Count 144 K/uL (130-400); RDW Coefficient of Variation 13.1 % (11.5-14.5); RDW Standard Deviation 46.7 fL (36.4-46.3); Red Blood Count 3.54 M/uL (4.7-6.1)
[2019-11-01 07:08] LABS: BUN Creatinine Ratio 15.2 (10-20); Creatinine Clr Calc Pharmacy 112.8 ml/min; Est GFR (African American) 115.7; Est GFR (Non-African American) 99.8; Magnesium 1.8 mg/dl (1.8-2.4)
[2019-11-01 07:10] LABS: Albumin Globulin Ratio 0.9 (0.9-2); Bilirubin,Total 0.8 mg/dl (0.2-1); Globulin 3.2 gm/dl (2.5-4.0); Phosphorus 1.7 mg/dl (2.5-4.9); Total Protein 6.2 gm/dl (6.4-8.2)
[2019-11-01] MEDS ORDERED: SODIUM PHOSPHATE 3 MMOL/1 ML INFUSION IV STA (08:20)
[2019-11-01] MEDS: ASCORBIC ACID 500 MG TAB PO SCH (08:57)
[2019-11-01] MEDS: OMEGA-3 (PURIFIED FISH OIL) 1 GM CAP PO SCH (08:57)
[2019-11-01] MEDS: CALCIUM CARBONATE 1250MG TAB PO SCH ×2 (08:57→20:52)
[2019-11-01] MEDS ORDERED: NON-FORMULARY MEDICATION (Lutein 20 MG) PO SCH (09:00)
[2019-11-01] MEDS ORDERED: SODIUM PHOSPHATE 21 MMOL in SODIUM CHLORIDE 0.9% 500 ML IV ONE (09:00)
[2019-11-01] MEDS: LIDOCAINE 5% 1 PATCH TD SCH (09:02)
[2019-11-01] MEDS ORDERED: DOCUSATE SODIUM 100 MG CAP PO ONE (11:45)
[2019-11-01] MEDS: CHOLECALCIFEROL 1,000 UNITS 25 MCG TAB PO SCH (11:56)
[2019-11-01] MEDS: GLUCOSAMINE SULFATE 500 MG CAP PO SCH (11:56)
--- NOTE | 2019-11-01 14:15 | Hospitalist Progress Note ---
Date of Service November 01, 2019 Assessment & Plan (1) Acetabular fracture: 69-year-old male with a past medical history significant for hypertension and hypothyroidism admitted for several rib and pelvic fractures and pelvic extraperitoneal hemorrhage. Imaging with CT head, neck, abdomen, pelvis, hip performed; comminuted fracture of the left superior and inferior pubic ring extending through the medial wall of the left acetabulum, comminuted fracture of the left sacral ala, right sided lateral eighth and ninth rib fractures, intrapelvic extraperitoneal hemorrhage, left obturator internus hemorrhage noted Was given DDAVP 20mg IV x 1 for bleeding--> of note, patient has been taking up to 650mg ASA in the evenings for pain --> HOLD in setting of bleeding as well as NSAIDs * Pain control: Morphine IV --> will add 2mg IV as well as 4mg IV q4h already ordered as patient does report fairly adequate pain control and had not wanted any morphine originally Will add tramadol prn Change tylenol IV to PO prn * Ortho consulted -- appreciate recommendations Per Dr. Wesley, non-operative management at this time Will need to be nonweightbearing for approximately 6 weeks, use of a walker or wheelchair -- PT/OT evaluations --> SNF at discharge. CM aware * H/h improved to 11.5/34.1 Awaiting placement SNF -- CM to assist --> likely discharge SATURDAY (2) Pelvic fracture: * Noted (3) Rib fracture: * RIGHT -- 8th, 9th and mildly displaced 12 rib fx * CXR without pneumothorax or flail chest * EKG was obtained --> reviewed, NSR without abnormality * O2 sat 96% on RA * Lidoderm patch ordered --> patient with more rib in location of 12th R rib fx --> asked RN to reposition lidoderm patch to affected area * Continue to monitor (4) HTN (hypertension): * Chronic. HCTZ, Lisinopril on hold on admission in setting of acute hem./dehydration * BP 156/74 --> resumed lisinopril * Resumed HCTZ for AM * Continue to monitor (5) Hypothyroidism: * Chronic. * Continue home levothyroxine 112mcg (6) Hypokalemia: * K 3.3 -- ordered 20meq KCL * RESOLVED --> 4.0 (7) Hemorrhage, peritoneal: * H/h stable (8) Elevated bilirubin: * T bili 1.1 up from 0.9 on 10/30 with all other LFT wnl * LFTs wnl on repeat * Monitor AM labs (9) Hypophosphatemia: * Phos low at 1.7 --> ordered 21mmol IV x 1 * Monitor am labs (10) DVT prophylaxis: * SCDs * Chemoprophylaxis held in setting of bleeding/hemorrhage on imaging Dispo: will need SNF at rehab. CM aware -- likely discharge Saturday Admission and Anticipated Discharge Date Admission Date: October 30, 2019 Anticipated date of discharge: 11/02/19 Supervising Physician Co-Signing Physician Notes PA Supervision Note: I did not personally see or examine the patient today, but I verified all panda points of WEI Cosby's assessment and plan with the following exceptions/additions: None Subjective Patient evaluated this morning. Pain still tolerable with Tylenol, however he does admit to some increased pain after working with therapy to his left hip. Discussed small dose of morphine to help with pain and ease pain with breathing secondary to rib fractures. Patient agreeable. Patient not previously aware that rec are for SNF at discharge and that he will be non-weightbearing for approximately 6 weeks, but is agreeable to rehab at this time. Eating/drinking without difficulty. Denies chest pain, shortness of breath, fevers, chills, abdominal pain, n/v/d. No bowel movement yet but has been passing gas. Denies need for stool softener at this time. Questions/concerns addressed. Possible discharge tomorrow pending case management/auth for rehab. Review of Systems Review of Systems: All systems reviewed & are unremarkable except as noted in HPI & below Physical Exam Constitutional: WD/WN, vitals as above cooperative; no acute distress and + uncomfortable Eyes: + anicteric sclerae and PERRL Neck: trachea midline, no thyromegaly Respiratory: no respiratory distress Auscultation: lungs clear to auscultation bilaterally; no crackles, no rales and no wheezes Cardiovascular: RRR, no murmur, no edema Extremities: normal capillary refill Chest (Breasts): Additional Comments: R posterior chest wall tender to palpation Lidocaine to lateral R chest, superior and anterior to area of most tenderness to palpation Gastrointestinal (Abdomen): normal bowel sounds, soft, nontender, no hepatosplenomegaly Musculoskeletal: 4/5 strength LLE, 5/5 RLE Pain with internal/external rotation at the hip NVI 2+ dp, pt pulses bilaterally No significant ecchymosis or hematoma on exam Neurologic: patellar DTR's 2+ bilat, sensation intact Psychiatric: A+Ox3, euthymic affect Lymphatic: no cervical or axillary lymphadenopathy Results & Data Results & Data ([facility]) Vital Signs (Past 12 Hours) Vital Signs Temp Pulse Resp BP Pulse Ox 11/01/19 07:22 36.9 C 72 16 154/80 H 96 Laboratory Results 11/01/19 11/01/19 Range/Units 06:11 06:11 WBC 8.20 (4.8-10.8) K/uL RBC 3.54 L (4.7-6.1) M/uL Hgb 11.5 L (14.0-18.0) g/dL Hct 34.1 L (42-52) % MCV 96.3 (80-100) fL MCH 32.5 (25-34) pg MCHC 33.7 (32-36) g/dL RDW Std Deviation 46.7 H (36.4-46.3) fL RDW Coeff of Celestino 13.1 (11.5-14.5) % Plt Count 144 (130-400) K/uL MPV 10.2 (7.4-10.4) fL Immature Gran % (Auto) 0.2 % Neut % (Auto) 77.1 % Lymph % (Auto) 10.0 % Dawson % (Auto) 11.0 % Eos % (Auto) 1.3 % Baso % (Auto) 0.4 % Immature Gran # (Auto) 0.02 (0.00-0.02) K/uL Neut # (Auto) 6.32 (1.4-6.5) K/uL Lymph # (Auto) 0.82 L (1.2-3.4) K/uL Dawson # (Auto) 0.90 H (0.11-0.59) K/uL Eos # (Auto) 0.11 (0-0.5) K/uL Baso # (Auto) 0.03 (0-0.2) K/uL Sodium 133 L (136-145) mmol/L Potassium 4.0 (3.5-5.1) mmol/L Chloride 103 (98-107) mmol/L Carbon Dioxide 24 (21-32) mmol/L Anion Gap 6.0 (3-11) BUN 9 D (7-18) mg/dl Creatinine 0.62 (0.6-1.4) mg/dl Est Cr Clr Drug Dosing 112.8 ml/min Est GFR ( Amer) 115.7 Est GFR (Non-Af Amer) 99.8 BUN/Creatinine Ratio 15.2 (10-20) Glucose 104 H (70-99) mg/dl Calcium 8.0 L (8.5-10.1) mg/dl Phosphorus 1.7 L (2.5-4.9) mg/dl Magnesium 1.8 (1.8-2.4) mg/dl Total Bilirubin 0.8 (0.2-1) mg/dl AST 30 (15-37) U/L ALT 37 (12-78) U/L Alkaline Phosphatase 54 (45-117) U/L Total Protein 6.2 L (6.4-8.2) gm/dl Albumin 3.0 L (3.4-5.0) gm/dl Globulin 3.2 (2.5-4.0) gm/dl Albumin/Globulin Ratio 0.9 (0.9-2) PG Care Time/CCT Total # of Minutes Spent Total Time Spent with Patient: Total time spent is greater than 50% in coordination of care (as documented) at patient's floor/unit and/or counseling patient: Coding Level of Care Code 70859 Subseq Hosp Care Lvl 3 Diagnoses Acetabular fracture S32.475A Encounter type: initial encounter Fracture alignment: nondisplaced Fracture type: closed Laterality: left Sublocation of acetabulum: medial wall Pelvic fracture S32.82XA Encounter type: initial encounter Fracture alignment: without disruption of pelvic ring Fracture type: closed Pelvic bone location: multiple parts Rib fracture S22.43XA Encounter type: initial encounter Fracture type: closed Laterality: bilateral Rib fracture type: multiple ribs HTN (hypertension) I10 Hypothyroidism E03.9 Hypokalemia E87.6 Hemorrhage, peritoneal K66.1 Elevated bilirubin R17 Hypophosphatemia E83.39 DVT prophylaxis Z29.9 (1) Rib fracture Encounter type: initial encounter Fracture type: closed Laterality: bilateral Rib fracture type: multiple ribs Qualified Code(s): S22.43XA - Multiple fractures of ribs, bilateral, initial encounter for closed fracture (2) Acetabular fracture Encounter type: initial encounter Fracture alignment: nondisplaced Fracture type: closed Laterality: left Sublocation of acetabulum: medial wall Qualified Code(s): S32.475A - Nondisplaced fracture of medial wall of left acetabulum, initial encounter for closed fracture (3) Pelvic fracture Encounter type: initial encounter Fracture alignment: without disruption of pelvic ring Fracture type: closed Pelvic bone location: multiple parts Qualified Code(s): S32.82XA - Multiple fractures of pelvis without disruption of pelvic ring, initial encounter for closed fracture
[2019-11-01] MEDS ORDERED: TRAMADOL HCL 50 MG TABLET PO PRN (17:03)
[2019-11-01] MEDS: lisinopriL 5 MG TAB PO SCH (18:27)
[2019-11-01] MEDS: ACETAMINOPHEN 325 MG TAB PO PRN (22:49)
--- NOTE | 2019-11-02 01:16 | Billing Data ---
Date of Service November 02, 2019 Coding Level of Care Code 28922 Initial Inpt Care Lvl 3
[2019-11-02] MEDS: LEVOTHYROXINE SODIUM 112 MCG TABLET PO SCH (05:59)
[2019-11-02] MEDS: ACETAMINOPHEN 325 MG TAB PO PRN ×2 (06:25→12:06)
[2019-11-02 06:31] LABS: Hemoglobin 11.9 g/dL (14.0-18.0); Mean Corpuscular Hemoglobin 32.2 pg (25-34); Mean Corpuscular Volume 94.9 fL (80-100); Mean Platelet Volume 9.8 fL (7.4-10.4); Platelet Count 144 K/uL (130-400); RDW Coefficient of Variation 13.4 % (11.5-14.5); RDW Standard Deviation 46.6 fL (36.4-46.3); Red Blood Count 3.69 M/uL (4.7-6.1); White Blood Count 6.03 K/uL (4.8-10.8)
[2019-11-02 07:12] LABS: Albumin Level 2.9 gm/dl (3.4-5.0); BUN Creatinine Ratio 15.2 (10-20); Calcium 8.3 mg/dl (8.5-10.1); Creatinine Clr Calc Pharmacy 114.7 ml/min; Est GFR (African American) 116.5; Est GFR (Non-African American) 100.5; Potassium 3.8 mmol/L (3.5-5.1)
[2019-11-02 07:19] LABS: Albumin Globulin Ratio 0.8 (0.9-2); Bilirubin,Total 0.6 mg/dl (0.2-1); Globulin 3.6 gm/dl (2.5-4.0); Phosphorus 2.7 mg/dl (2.5-4.9); Total Protein 6.5 gm/dl (6.4-8.2)
[2019-11-02] MEDS: OMEGA-3 (PURIFIED FISH OIL) 1 GM CAP PO SCH (08:34)
[2019-11-02] MEDS: CALCIUM CARBONATE 1250MG TAB PO SCH (08:34)
[2019-11-02] MEDS: LIDOCAINE 5% 1 PATCH TD SCH (08:34)
[2019-11-02] MEDS: ASCORBIC ACID 500 MG TAB PO SCH (08:34)
[2019-11-02] MEDS: lisinopriL 5 MG TAB PO SCH (08:35)
[2019-11-02] MEDS ORDERED: hydroCHLOROthiazide 25 MG TAB PO SCH (09:00)
[2019-11-02] MEDS: GLUCOSAMINE SULFATE 500 MG CAP PO SCH (12:00)
[2019-11-02] MEDS: CHOLECALCIFEROL 1,000 UNITS 25 MCG TAB PO SCH (12:01)
--- NOTE | 2019-11-02 13:35 | Discharge Summary ---
Date of Service November 02, 2019 Admission HPI Per Admitting Provider 69-year-old male with a past medical history significant for hypertension and hypothyroidism presented to the ED after a fall from a ladder while trimming branches from his tree at a height of 8 to 9 feet. Presented via EMS with c- collar in place. Does not recall hitting his head but reports that he did bend his glasses, denies headache, visual changes, dizziness. On arrival patient's vitals were stable, saturating well on room air, complaining of left hip pain 8/10 with movement, no pain at rest. Also with left inguinal area pain, right upper chest wall pain. CT head, neck, abdomen, pelvis, hip performed; comminuted fracture of the left superior and inferior pubic ring extending through the medial wall of the left acetabulum, comminuted fracture of the left sacral ala, right sided lateral eighth and ninth rib fractures, intrapelvic extraperitoneal hemorrhage, left obturator internus hemorrhage noted. No solid organ injury noted in the abdomen or pelvis, no pneumothorax, no flail chest. Initial lab work showed leukocytosis to 12.63, hemoglobin 13.6, elevated AST to 77. Patient was given Tylenol 1000 mg PO, 1 L NSS bolus. Orthopedic team accepted patient to their service, hospitalist team was consulted for admission. On my interview patient is without pain at rest. He had recently received his Tylenol at that time. Of note, has a longstanding history of NSAID and aspirin use for back pain. Takes ibuprofen 400 mg daily in the morning, and often aspirin 325 mg (2 tablets) at night. No history of easy bleeding or bruising. At time of my interview denies shortness of breath, chest pain, nausea, vomiting, constipation or diarrhea, fevers or chills. No numbness or tingling of any extremities. Patient was staying still during my exam so as not to provoke pain. Principal Diagnosis Pelvic fracture Discharge Exam Constitutional WD/WN, vitals as above Respiratory normal respiratory effort, lungs clear to auscultation Cardiovascular RRR, no murmur, no edema Gastrointestinal (Abdomen) Inspection/Auscultation: abdomen normal to inspection and normal bowel sounds; abdomen not distended Percussion/Palpation: abdomen soft; abdomen nontender Musculoskeletal left leg weakness and painful Skin no rashes, warm and dry Neurologic moves all extremities and awake Psychiatric A+Ox3, euthymic affect Discharge Data Allergies Allergy/AdvReac Type Severity Reaction Status Date / Time No Known Allergies Allergy Verified 10/30/19 16:39 Consultations 10/30/19 19:57 ED Decision to Admit Stat 10/30/19 20:49 Consult Orthopedic Surgery Routine 10/30/19 22:38 Consult Case Management - Discharge Planning Routine Ordered Studies 10/30/19 17:00 CT abd pelvis IV con only Stat CT cervical spine wo con Stat CT head/brain wo con Stat 10/30/19 19:28 CT hip LT wo con Stat Hospital Course (1) Acetabular fracture: 69-year-old male with a past medical history significant for hypertension and hypothyroidism admitted for several rib and pelvic fractures and pelvic extraperitoneal hemorrhage. Imaging with CT head, neck, abdomen, pelvis, hip performed; comminuted fracture of the left superior and inferior pubic ring extending through the medial wall of the left acetabulum, comminuted fracture of the left sacral ala, right sided lateral eighth and ninth rib fractures, intrapelvic extraperitoneal hemorrhage, left obturator internus hemorrhage noted Was given DDAVP 20mg IV x 1 for bleeding--> of note, patient has been taking up to 650mg ASA in the evenings for pain --> HOLD in setting of bleeding as well as NSAIDs * Pain control: Morphine IV --> will add 2mg IV as well as 4mg IV q4h already ordered as patient does report fairly adequate pain control and had not wanted any morphine originally Will add tramadol prn Change tylenol IV to PO prn * Ortho consulted -- appreciate recommendations Per Dr. Wesley, non-operative management at this time Will need to be nonweightbearing for approximately 6 weeks, use of a walker or wheelchair -- PT/OT evaluations --> SNF at discharge. CM aware * H/h improved to 11.5/34.1 (2) Pelvic fracture: * Noted (3) Rib fracture: * RIGHT -- 8th, 9th and mildly displaced 12 rib fx * CXR without pneumothorax or flail chest * EKG was obtained --> reviewed, NSR without abnormality * O2 sat 96% on RA * Lidoderm patch ordered (4) Hemorrhage, peritoneal: * H/h stable as above (5) HTN (hypertension): * Continue home lisinopril and hctz (6) Hypothyroidism: * Chronic. * Continue home levothyroxine 112mcg (7) Hypokalemia: * resolved (8) Elevated bilirubin: * resolved (9) Hypophosphatemia: * resolved (10) DVT prophylaxis: Hold chemophrophylaxis for hematoma, SCDs Dispo: to [facility] for rehab Total Time Total Time Spent Total Time Spent (In Minutes): greater than 30 minutes Discharge Plan Discharge Items Patient Disposition: Transfer Inpatient Rehab Fac Reason For Visit: PELVIS AND RIB FRACTURES Discharge Diagnosis: Pelvis and rib fracture Activity: As commented below Activity Comment: left non weightbearing Non-emergency contact: Primary Care Provider Call non-emergency contact if: you have any medication questions Follow-up/Referrals: Jamal Muller [Primary Care Provider] - Diet: Regular Addtl Attending Provider Instructions: (1) Acetabular fracture: Imaging with CT scans of the head, neck, abdomen, pelvis, hip performed; comminuted fracture of the left superior and inferior pubic ring extending through the medial wall of the left acetabulum, comminuted fracture of the left sacral ala, right sided lateral eighth and ninth rib fractures, intrapelvic extraperitoneal hemorrhage, with left obturator internus hemorrhage noted Given DDAVP 20mg IV x 1 for bleeding Pain control with tramadol and Tylenol Orthopedics consulted Per Dr. wesley, non-operative management - Will need to be nonweightbearing for approximately 6 weeks, use of a walker or wheelchair Hemoglobin improved and has been stable around 11 since 10/30 Will need to follow up with Dr. Wesley at [facility] in 6 weeks. (2) Pelvic fracture: As above (3) Rib fracture: RIGHT -- 8th, 9th and mildly displaced 12 rib fracture CXR without pneumothorax or flail chest Oxygen saturation normal on room air Lidoderm patch (4) HTN (hypertension): Chronic. Continue lisinopril and hctz (5) Hypothyroidism: Chronic. Continue home levothyroxine 112mcg (6) Hypokalemia: Resolved (7) Hemorrhage, peritoneal: Hemoglobin stable since 10/30 Pending Studies at Discharge: No Stand-Alone Forms: [employer], [facility] Skilled Items Patient informed of condition?: Yes DNR: No Discharge Level of Care: Acute rehab Communicable Disease: No Discharge Prognosis: Improving Lines: None Urinary Catheter: No Medications and DC Order Prescriptions: New tramadol 50 mg Tablet 50 mg PO Q4H PRN (Reason: pain) Qty: 20 RF: 0 lidocaine 5 % Adhesive Patch,Medicated 1 patch transdermal QAM Qty: 7 RF: 0 Continued glucosamine sulfate [Glucosamine] 500 mg Tablet 2,000 mg PO DAILY@1200 RF: 0 calcium carbonate [Calcium 600] 600 mg calcium (1,500 mg) Tablet 600 mg PO BID RF: 0 ascorbic acid (vitamin C) [Vitamin C] 500 mg Tablet 1,000 mg PO DAILY RF: 0 lisinopril 5 mg Tablet 5 mg PO QAM RF: 0 vitamin E 400 unit Capsule 400 unit PO DAILY RF: 0 levothyroxine 112 mcg Tablet 112 mcg PO QAM RF: 0 lutein 20 mg Capsule 20 mg PO DAILY RF: 0 hydrochlorothiazide 12.5 mg Tablet 12.5 mg PO QAM RF: 0 cholecalciferol (vitamin D3) [Vitamin D3] 50 mcg (2,000 unit) Tablet 2,000 mcg PO DAILY@1200 RF: 0 omega 0-dzw-wth-fish oil [Fish Oil] 300-1,000 mg Capsule 1 cap PO DAILY RF: 0 sildenafil 100 mg Tablet 100 mg PO DAILY PRN (Reason: Erectile Dysfunction) RF: 0 Discontinued ibuprofen 200 mg Tablet 600 mg PO QAM RF: 0 aspirin 325 mg Tablet 650 mg PO DIRECTED PRN (Reason: Pain/Headache) RF: 0 aspirin 325 mg Tablet 650 mg PO HS RF: 0 Discharge Orders: Discharge Order (Routine); Ordered 11/02/19 Ordered By: Crystal Juan Admission Data Admit Date/Time: 10/30/19 20:49 Attending Provider: Robert Lares Admit Provider: Kristie Anderson Primary Care Provider: Jamal Muller Other Providers: Brad Wesley ; [facility] ; Robert Lares Other Interventions: Discharge Summary Assessment (RN) Last Done: 11/02/19 12:32 DC Date/Time DO NOT enter until pt leaves facility: 11/02/19 16:33 Supervising Physician Co-Signing Physician Notes I supervised Crystal Juan NP on this patient's care. I examined the patient today independently of her. I discussed the plan of care with her with the plan being as written in her note except for any following changes/exceptions: None. No acute distress today. Patient is anxious to get to [facility] to be able to return home as soon as possible. With walker today for movement. Coding Level of Care Code D/C Day Management >30 mins Diagnoses Acetabular fracture S32.475A Encounter type: initial encounter Fracture alignment: nondisplaced Fracture type: closed Laterality: left Sublocation of acetabulum: medial wall Pelvic fracture S32.82XA Encounter type: initial encounter Fracture alignment: without disruption of pelvic ring Fracture type: closed Pelvic bone location: multiple parts Rib fracture S22.43XA Encounter type: initial encounter Fracture type: closed Laterality: bilateral Rib fracture type: multiple ribs Hemorrhage, peritoneal K66.1 HTN (hypertension) I10 Hypothyroidism E03.9 Hypokalemia E87.6 Elevated bilirubin R17 Hypophosphatemia E83.39 DVT prophylaxis Z29.9
== END 2019-11-02 16:33 | DRG 551 ==
LOC: ED 15:49 → 3W 20:49 → SUATTDRO 20:49 → 3W 22:13

== ENCOUNTER 2020-01-28 15:03 | Inpatient (IN) ==
[2020-01-28] MEDS ORDERED: SODIUM CHLORIDE 0.9% 1000ML 1,000 ML IV SCH (15:45)
--- NOTE | 2020-01-28 15:46 | Emergency Department Note ---
Impression & Plan DVT (deep venous thrombosis), Leg swelling ED Provider Note NAME: AMBIKA WOODWARD AGE: 69 SEX: M : 1950 ARRIVES VIA: Walk-In INFORMANT: Patient, ED PROVIDER(S): Major Bui DO CHIEF COMPLAINT: Left leg swelling HPI: Patient is a 69-year-old male who presents the ER for left leg swelling. He has a previous history of DVTs and PEs about 18 years ago. This past October he fractured his pelvis. He has been fairly immobile since then but was on Lovenox shots from October until December. Since then he has been up and moving around but not back to his baseline. He noticed swelling of his left lower extremity which started this past Saturday. He followed up with orthopedics and they ordered an ultrasound. They found extensive DVT and was referred into the ER. He denies any chest pain or shortness of breath. No nausea vomiting or diarrhea. No other exacerbating or remitting factors. ROS: See above HPI for pertinent positives & negatives. A total of 10 systems reviewed and were otherwise negative. PAST MEDICAL HISTORY:See Below PAST SURGICAL HISTORY:See Below FAMILY HISTORY:See Below SOCIAL HISTORY:See Below HOME MEDICATIONS:See Below ALLERGIES:See Below VITALS:See Below PHYSICAL EXAMINATION: GENERAL: Sitting up in bed, alert, well appearing, well nourished, no distress, non-toxic EYE EXAM: normal conjunctiva. OROPHARYNX: no exudate, no erythema, lips, buccal mucosa, and tongue normal and mucous membranes are moist NECK: supple, no nuchal rigidity, no adenopathy, non-tender LUNGS: Clear to auscultation. Normal chest wall mechanics HEART: no murmurs, S1 normal and S2 normal ABDOMEN: abdomen soft, non-tender, normo-active bowel sounds, no masses, no rebound or guarding. BACK: Back is symmetrical on inspection and there is no deformity, no midline tenderness, no CVA tenderness. SKIN: no rashes and no bruising UPPER EXTREMITIES: upper extremities are grossly normal. LOWER EXTREMITIES: Left calf and thigh significant larger than right. DP and PT 2 out of 4. Flexion-extension hip knee ankle intact. NEURO EXAM: Normal sensorium, cranial nerves II-XII grossly intact, normal speech, no gross weakness of arms, no gross weakness of legs. MEDICAL DECISION MAKING: Patient is a 69-year-old male who presents the ER for large and swollen left lower extremity with an ultrasound that shows extensive occlusive DVT. DP and PT intact. IV was established blood work was obtained. Labs show no sign ificant leukocytosis or anemia. INR was unremarkable. BMP with LFTs bilirubin and troponin was negative. Lipase was normal. CT [place] of the chest showed no PEs. Discussed with Dr. Ayala who agreed with admission IV heparin bolus and drip due to the extensiveness of the clot. Patient and significant other was updated bedside. Discussed with the hospitalist and patient was overcommitted for further work-up. Triage Nursing notes reviewed. Prior medical records reviewed Vital Signs: reviewed and remarkable for HTN Differential diagnosis: DVT, musculoskeletal, infection, joint effusion, trauma, lymphedema, idiopathic, CHF, as well as other pathologies. ER treatment provided: See below Diagnostics interpreted by me: ECG: Sinus rhythm rate of 67 Normal axis No PVCs Normal QTC Poor baseline Cardiac Monitoring: An order was placed for continuous cardiac monitoring. The monitor shows a rate of 68 with sinus rhythm. Laboratory studies: As stated above and show below. Imaging studies: CT Anyi of the chest was unremarkable for any PEs Duplex left lower extremity shows extensive DVT Consultation(s): Discussed with Dr. Ayala who agrees with heparin drip and bolus admission Discussed with Dr. Damon Wang for further evaluation ED COURSE: Procedures: none Critical Care: None Past Med/Surg History Medical History DVT (deep venous thrombosis) HTN (hypertension) Hypothyroidism Syncopal episodes Social History Smoking Status: Former smoker Tobacco Type: Cigarettes Hx Alcohol Use: Yes Alcohol type: beer, wine and hard liquor Hx Substance Use: No Preferred Language: South Korean Communication Ability: Effective Legal Recovery Specialist Required: No Beliefs That Will Affect Care: None marital status: Current Living Situation: Spouse Feels Safe at Home: Yes Allergies Allergies Allergy/AdvReac Type Severity Reaction Status Date / Time No Known Allergies Allergy Verified 01/28/20 18:24 Home Meds Home Medications Medication Instructions Recorded Confirmed glucosamine sulfate [Glucosamine] 2,000 mg PO DAILY@1200 10/30/19 01/28/20 hydrochlorothiazide 12.5 mg PO QAM 10/30/19 01/28/20 levothyroxine 112 mcg PO QAM 10/30/19 01/28/20 lisinopril 5 mg PO QAM 10/30/19 01/28/20 lutein 20 mg PO DAILY 10/30/19 01/28/20 omega 6-uol-osz-fish oil [Fish Oil] 1 cap PO DAILY 10/30/19 01/28/20 sildenafil 100 mg PO DAILY PRN 10/30/19 01/28/20 vitamin E 400 unit PO DAILY 10/30/19 01/28/20 ascorbic acid (vitamin C) 500 mg PO DAILY 01/28/20 01/28/20 aspirin 650 mg PO Q8H PRN 01/28/20 01/28/20 calcium carbonate 500 mg PO BID 01/28/20 01/28/20 cholecalciferol (vitamin D3) 4,000 unit PO DAILY 01/28/20 01/28/20 ibuprofen 400 mg PO QAM 01/28/20 01/28/20 magnesium oxide 250 mg PO QAM 01/28/20 01/28/20 Previous Rx's Medication Instructions Recorded tramadol 50 mg PO Q4H PRN #20 tab 11/02/19 Results & Data (ED) Vital Signs Vital Signs - 24 hr 01/28/20 15:15 01/28/20 17:30 01/28/20 18:30 Temperature 36.7 C Temperature Source Oral Pulse Rate 75 66 Pulse Rate [Right Finger] 80 Pulse Rate from SpO2 Sensor 67 Pulse Rhythm Regular Pulse Strength Normal Respiratory Rate 16 20 17 Respiratory Effort / Characteristics Non-Labored Spontaneous Non-Labored Spontaneous Respiratory Depth Normal Normal Respiratory Pattern Regular Regular Blood Pressure 181/80 H 143/77 H Blood Pressure [Right Arm] 145/81 H Blood Pressure Mean 113 107 Blood Pressure Mean [Right Arm] 102 Blood Pressure Position Sitting Pulse Oximetry 97 99 98 Oxygen Delivery Method Room Air Room Air Sepsis Recent Fever Within 48 Hours No Sepsis New/Unexplained Change in Mental Status N/A Sepsis Action Taken by Nursing No Action Required 01/28/20 18:38 01/28/20 18:40 01/28/20 19:00 Temperature Temperature Source Pulse Rate 67 71 66 Pulse Rate [Right Finger] Pulse Rate from SpO2 Sensor 68 66 Pulse Rhythm Regular Pulse Strength Respiratory Rate 23 16 16 Respiratory Effort / Characteristics Respiratory Depth Respiratory Pattern Blood Pressure 156/86 H Blood Pressure [Right Arm] Blood Pressure Mean 107 Blood Pressure Mean [Right Arm] Blood Pressure Position Pulse Oximetry 98 98 97 Oxygen Delivery Method Room Air Room Air Sepsis Recent Fever Within 48 Hours Sepsis New/Unexplained Change in Mental Status Sepsis Action Taken by Nursing Laboratory Data Result diagrams: 01/28/20 15:56 01/28/20 15:56 Lab Results 01/28/20 01/28/20 01/28/20 Range/Units 15:56 15:56 15:56 WBC 5.78 (4.8-10.8) K/uL RBC 4.52 L (4.7-6.1) M/uL Hgb 14.3 (14.0-18.0) g/dL POC Hgb (14.0-18.0) g/dl Hct 43.0 (42-52) % POC Hct (42-52) % MCV 95.1 (80-100) fL MCH 31.6 (25-34) pg MCHC 33.3 (32-36) g/dL RDW Std Deviation 46.9 H (36.4-46.3) fL RDW Coeff of Celestino 13.6 (11.5-14.5) % Plt Count 236 (130-400) K/uL MPV 9.7 (7.4-10.4) fL Immature Gran % (Auto) 0.0 % Neut % (Auto) 62.4 % Lymph % (Auto) 22.5 % [place] % (Auto) 9.0 % Eos % (Auto) 5.4 % Baso % (Auto) 0.7 % Neut # (Auto) 3.61 (1.4-6.5) K/uL Lymph # (Auto) 1.30 (1.2-3.4) K/uL [place] # (Auto) 0.52 (0.11-0.59) K/uL Eos # (Auto) 0.31 (0-0.5) K/uL Baso # (Auto) 0.04 (0-0.2) K/uL Immature Gran # (Auto) 0.00 (0.00-0.02) K/uL PT 10.3 (9.0-12.0) Seconds INR 1.0 (0.9-1.1) APTT 20.0 L (21.0-31.0) Seconds PTT Ratio 0.7 POC Sodium (135-144) mmol/L Sodium 140 (136-145) mmol/L POC Potassium (3.3-5.0) mmol/L Potassium (3.5-5.1) mmol/L POC Chloride (101-112) mmol/L Chloride 104 (98-107) mmol/L Carbon Dioxide 32 (21-32) mmol/L POC Total CO2 (24-31) mmol/L Anion Gap 4.0 (3-11) POC Anion Gap (16-25) mmol/L POC BUN (7-18) mg/dl BUN 15 (7-18) mg/dl Creatinine 0.92 (0.6-1.4) mg/dl POC Creatinine (0.6-1.3) mg/dl Est Cr Clr Drug Dosing 78.4 ml/min Est GFR ( Amer) 96.6 Est GFR (Non-Af Amer) 83.4 BUN/Creatinine Ratio 16.4 (10-20) Glucose 115 H (70-99) mg/dl POC Glucose (other) (70-99) mg/dl Calcium 9.0 (8.5-10.1) mg/dl POC Ioniz Calcium Crissy (1.12-1.32) mmol/l Total Bilirubin 0.4 (0.2-1) mg/dl AST (15-37) U/L ALT 39 (12-78) U/L Alkaline Phosphatase 91 (45-117) U/L Troponin I < 0.015 (0-0.045) ng/ml Total Protein 7.5 (6.4-8.2) gm/dl Albumin 3.8 (3.4-5.0) gm/dl Globulin 3.7 (2.5-4.0) gm/dl Albumin/Globulin Ratio 1.0 (0.9-2) Lipase 84 (73-393) U/L 01/28/20 Range/Units 16:01 WBC (4.8-10.8) K/uL RBC (4.7-6.1) M/uL Hgb (14.0-18.0) g/dL POC Hgb 14.6 (14.0-18.0) g/dl Hct (42-52) % POC Hct 43 (42-52) % MCV (80-100) fL MCH (25-34) pg MCHC (32-36) g/dL RDW Std Deviation (36.4-46.3) fL RDW Coeff of Celestino (11.5-14.5) % Plt Count (130-400) K/uL MPV (7.4-10.4) fL Immature Gran % (Auto) % Neut % (Auto) % Lymph % (Auto) % [place] % (Auto) % Eos % (Auto) % Baso % (Auto) % Neut # (Auto) (1.4-6.5) K/uL Lymph # (Auto) (1.2-3.4) K/uL [place] # (Auto) (0.11-0.59) K/uL Eos # (Auto) (0-0.5) K/uL Baso # (Auto) (0-0.2) K/uL Immature Gran # (Auto) (0.00-0.02) K/uL PT (9.0-12.0) Seconds INR (0.9-1.1) APTT (21.0-31.0) Seconds PTT Ratio POC Sodium 140 (135-144) mmol/L Sodium (136-145) mmol/L POC Potassium 4.0 (3.3-5.0) mmol/L Potassium (3.5-5.1) mmol/L POC Chloride 99 L (101-112) mmol/L Chloride (98-107) mmol/L Carbon Dioxide (21-32) mmol/L POC Total CO2 29 (24-31) mmol/L Anion Gap (3-11) POC Anion Gap 17.0 (16-25) mmol/L POC BUN 16 (7-18) mg/dl BUN (7-18) mg/dl Creatinine (0.6-1.4) mg/dl POC Creatinine 0.8 (0.6-1.3) mg/dl Est Cr Clr Drug Dosing ml/min Est GFR ( Amer) Est GFR (Non-Af Amer) BUN/Creatinine Ratio (10-20) Glucose (70-99) mg/dl POC Glucose (other) 117 H (70-99) mg/dl Calcium (8.5-10.1) mg/dl POC Ioniz Calcium Crissy 1.20 (1.12-1.32) mmol/l Total Bilirubin (0.2-1) mg/dl AST (15-37) U/L ALT (12-78) U/L Alkaline Phosphatase (45-117) U/L Troponin I (0-0.045) ng/ml Total Protein (6.4-8.2) gm/dl Albumin (3.4-5.0) gm/dl Globulin (2.5-4.0) gm/dl Albumin/Globulin Ratio (0.9-2) Lipase (73-393) U/L Administered Medications Heparin Sodium/Dextrose (Heparin Sodium/Dextrose) 25,000 units in 500 mls @ 29 mls/hr IV .[id number] DEE; Protocol Stop: 02/27/20 17:44 Last Admin: 01/28/20 18:40 Dose: 1,450 units/hr, 29 mls/hr Documented by: [id number] Cosigned by: [id number] Discontinued Medications Heparin Sodium (Porcine) (Heparin Sod (Porcine) 1000 Unit/Ml 10 Ml Vial) Confirm Administered Dose 10,000 units .ROUTE .STK-MED ONE Stop: 01/28/20 18:28 Last Admin: 01/28/20 18:34 Dose: 5,000 units Documented by: [id number] Cosigned by: [id number] Heparin Sodium/Dextrose (Heparin Iv Standard With Bolus) 1 ea IV NOW STA; Protocol Stop: 01/28/20 17:34 Last Admin: 01/28/20 18:40 Dose: 1 ea Documented by: [id number] Sodium Chloride (Nss 1000ml) 1,000 mls @ 999 mls/hr IV .Q1H1M DEE Stop: 01/28/20 16:45 Last Infusion: 01/28/20 18:54 Dose: 0 mls/hr Documented by: [id number] Admin: 01/28/20 16:06 Dose: 999 mls/hr Documented by: [id number] Ioversol (Optiray 320 125ml) 118 ml IV ONCE ONE Stop: 01/28/20 17:06 Last Admin: 01/28/20 17:05 Dose: 118 ml Documented by: [id number] Discharge Plan Visit Data Chief Complaint: Leg Injury/Pain Stated Complaint: BLOOD CLOT IN LEFT LEG ED Provider: Major Bui Discharge Problem: DVT (deep venous thrombosis), Leg swelling Patient Disposition: Still a Patient Discharge Instructions Interventions: ED Discharge Assessment Last Done: 01/28/20 19:25 Forms Stand Alone Forms: [facility]cang Prescriptions Prescriptions: No Action aspirin 325 mg Tablet 650 mg PO Q8H PRN (Reason: Pain) RF: 0 ascorbic acid (vitamin C) 500 mg Tablet 500 mg PO DAILY RF: 0 calcium carbonate 500 mg calcium (1,250 mg) Tablet,Chewable 500 mg PO BID RF: 0 cholecalciferol (vitamin D3) 50 mcg (2,000 unit) Capsule 4,000 unit PO DAILY RF: 0 ibuprofen 200 mg Tablet 400 mg PO QAM RF: 0 magnesium oxide 250 mg magnesium Tablet 250 mg PO QAM RF: 0 glucosamine sulfate [Glucosamine] 500 mg Tablet 2,000 mg PO DAILY@1200 RF: 0 lisinopril 5 mg Tablet 5 mg PO QAM RF: 0 vitamin E 400 unit Capsule 400 unit PO DAILY RF: 0 levothyroxine 112 mcg Tablet 112 mcg PO QAM RF: 0 lutein 20 mg Capsule 20 mg PO DAILY RF: 0 hydrochlorothiazide 12.5 mg Tablet 12.5 mg PO QAM RF: 0 omega 3-pio-non-fish oil [Fish Oil] 300-1,000 mg Capsule 1 cap PO DAILY RF: 0 sildenafil 100 mg Tablet 100 mg PO DAILY PRN (Reason: Erectile Dysfunction) RF: 0 tramadol 50 mg Tablet 50 mg PO Q4H PRN (Reason: pain) Qty: 20 RF: 0 Referrals Referrals: Jamal Muller [Primary Care Provider] - Discharge Problem: DVT (deep venous thrombosis) Qualifiers: DVT location: lower extremity Affected thrombotic vein of extremity: unspecified vein of extremity Chronicity: acute Laterality: left Qualified Code(s): I82.402 - Acute embolism and thrombosis of unspecified deep veins of left lower extremity
[2020-01-28 16:03] LABS: Basophils # (auto) 0.04 K/uL (0-0.2); Basophils % (auto) 0.7 %; Eosinophils # (auto) 0.31 K/uL (0-0.5); Eosinophils % (auto) 5.4 %; Hemoglobin 14.3 g/dL (14.0-18.0); Lymphocytes % (auto) 22.5 %; Mean Corpuscular Hemoglobin 31.6 pg (25-34); Mean Corpuscular Hgb Conc 33.3 g/dL (32-36); Mean Corpuscular Volume 95.1 fL (80-100); Mean Platelet Volume 9.7 fL (7.4-10.4); Monocytes # (auto) 0.52 K/uL (0.11-0.59); Neutrophils # (auto) 3.61 K/uL (1.4-6.5); Neutrophils % (auto) 62.4 %; Platelet Count 236 K/uL (130-400); RDW Coefficient of Variation 13.6 % (11.5-14.5); RDW Standard Deviation 46.9 fL (36.4-46.3); Red Blood Count 4.52 M/uL (4.7-6.1); White Blood Count 5.78 K/uL (4.8-10.8)
[2020-01-28 16:13] LABS: Partial Thromboplastin Ratio 0.7; Prothrombin Time 10.3 Seconds (9.0-12.0)
[2020-01-28 16:15] LABS: iSTAT Creatinine 0.8 mg/dl (0.6-1.3); iSTAT Hemoglobin 14.6 g/dl (14.0-18.0); iSTAT Ionized Calcium 1.2 mmol/l (1.12-1.32)
[2020-01-28 16:23] LABS: Alanine Aminotransferase 39 U/L (12-78); Albumin Level 3.8 gm/dl (3.4-5.0); BUN Creatinine Ratio 16.4 (10-20); Blood Urea Nitrogen 15 mg/dl (7-18); Carbon Dioxide 32 mmol/L (21-32); Chloride 104 mmol/L (98-107); Creatinine Clr Calc Pharmacy 78.4 ml/min; Est GFR (African American) 96.6; Est GFR (Non-African American) 83.4; Glucose 115 mg/dl (70-99); Lipase 84 U/L (73-393); Sodium 140 mmol/L (136-145)
[2020-01-28 16:32] LABS: Alkaline Phosphatase 91 U/L (45-117); Bilirubin,Total 0.4 mg/dl (0.2-1); Globulin 3.7 gm/dl (2.5-4.0); Total Protein 7.5 gm/dl (6.4-8.2); Troponin I < 0.015 ng/ml (0-0.045)
[2020-01-28] MEDS ORDERED: OPTIRAY 320 125ml IV ONE (17:05)
--- NOTE | 2020-01-28 17:23 | CT Scan Report ---
CT ANGIOGRAPHY OF THE CHEST, PULMONARY EMBOLUS PROTOCOL CLINICAL HISTORY: Chest Pain, eval for PE COMPARISON STUDY: Chest radiograph 10/30/2019. TECHNIQUE: Following IV administration of 118 mL of Optiray-320, helical axial images of the chest we re obtained utilizing the pulmonary embolus protocol. Maximal intensity projections and sagittal and coronal reformats were viewed on an independent 3D workstation. IV contrast was administered withou t complication. Automated exposure control was utilized for the study. A dose lowering technique wa s utilized adhering to the principles of ALARA. CT DOSE: 516.17 mGy.cm FINDINGS: No pulmonary emboli are identified. There is no thoracic aortic dissection. The heart is m ildly enlarged. There is moderate coronary artery calcification. No enlarged thoracic lymph nodes are present. There are several calcified thoracic lymph nodes. There are calcified granulomas within the lungs. There is no consolidation to suggest pneumonia. Subpleural opacities within the right lower l obe and lingula reflect atelectasis. No pneumothorax or pleural effusion is noted. There are several healing right-sided rib fractures. There are calcified granulomas within visualized portions of the l iver. IMPRESSION: 1. No pulmonary emboli identified. 2. No acute findings within the chest ACT 112: Negative or not required by law. Electronically signed by: Moshe Dasilva M.D. 01/28/2020 5:22 PM
[2020-01-28] MEDS ORDERED: HEPARIN SOD 5,000 UNIT/0.5 ML VIAL ONE (18:25)
[2020-01-28] MEDS ORDERED: HEPARIN SOD (PORCINE) 1000 UNIT/ML 10 ML VIAL ONE (18:27)
[2020-01-28] MEDS: HEPARIN SODIUM/DEXTROSE 25,000 UNITS/500 ML BAG IV SCH (18:40)
--- NOTE | 2020-01-28 18:54 | History & Physical Report ---
Date of Service January 28, 2020 Assessment & Plan (1) DVT (deep venous thrombosis): Admit [facility] Doppler showing extensive left lower extremity DVT from left iliac vein proximally to the calf veins distally. CT chest without PE ED physician spoke with Dr. Ayala who recommended heparin drip for now - will consult vascular surgery to follow up with patient tomorrow May want to consider CT abd/pelvis tomorrow to check for anything compressing vasculature in the abdomen that may have contributed to DVT formation Patient has history of DVT 18 years ago - will likely need lifelong anticoagulation at this point (2) Hyperparathyroidism: Continue calcium and vitamin D supplementation (3) Hypothyroidism: Continue levothyroxine (4) HTN (hypertension): Continue home hctz History of Present Illness Mr. Eduardo presents today with a DVT found with ultrasound ordered by his orthopedist. He noticed swelling on Saturday. He was recently admitted to [facility] in October after a fall from a ladder that resulted in a fracture of the left superior and inferior pubic ring extending through the medial wall of the left acetabulum, comminuted fracture of the left sacral ala, right sided lateral eighth and ninth rib fractures, intrapelvic extraperitoneal hemorrhage, left obturator internus hemorrhage. He was discharged to [facility] from [facility]. He was on Lovenox for DVT proph from November 01 to December 12 as ordered by his [facility] physician. He reports that he has been exercising and getting more active this month. He denies aches, chills, fever, sob, cough, chest pain, palpitations, lightheadedness, abdominal pain, n/v/d, dysuria, urinary hesitancy or joint pain. Primary Care Provider: Jamal Muller Allergies Allergy/AdvReac Type Severity Reaction Status Date / Time No Known Allergies Allergy Verified 01/28/20 18:24 Home Medications Home Medications Medication Instructions Recorded Confirmed Type glucosamine sulfate [Glucosamine] 2,000 mg PO DAILY@1200 10/30/19 01/28/20 History hydrochlorothiazide 12.5 mg PO QAM 10/30/19 01/28/20 History levothyroxine 112 mcg PO QAM 10/30/19 01/28/20 History lisinopril 5 mg PO QAM 10/30/19 01/28/20 History lutein 20 mg PO DAILY 10/30/19 01/28/20 History omega 2-vxg-lwz-fish oil [Fish Oil] 1 cap PO DAILY 10/30/19 01/28/20 History sildenafil 100 mg PO DAILY PRN 10/30/19 01/28/20 History vitamin E 400 unit PO DAILY 10/30/19 01/28/20 History tramadol 50 mg PO Q4H PRN #20 tab 11/02/19 01/28/20 Rx ascorbic acid (vitamin C) 500 mg PO DAILY 01/28/20 01/28/20 History aspirin 650 mg PO Q8H PRN 01/28/20 01/28/20 History calcium carbonate 500 mg PO BID 01/28/20 01/28/20 History cholecalciferol (vitamin D3) 4,000 unit PO DAILY 01/28/20 01/28/20 History ibuprofen 400 mg PO QAM 01/28/20 01/28/20 History magnesium oxide 250 mg PO QAM 01/28/20 01/28/20 History Past Med/Surg History Medical History DVT (deep venous thrombosis) HTN (hypertension) Hypothyroidism Syncopal episodes Social History Smoking Status: Former smoker Tobacco Type: Cigarettes Do You Dip or Chew Tobacco: No; Hx Alcohol Use: Yes Alcohol type: hard liquor Hx Substance Use: No Preferred Language: Japanese Communication Ability: Effective Wastewater Technician Required: No Beliefs That Will Affect Care: None marital status: Current Living Situation: Spouse Feels Safe at Home: Yes Review of Systems Review of Systems: All systems reviewed & are unremarkable except as noted in HPI & below Physical Exam Physical Exam: General: no distress Eyes: normal inspection, PERLL Respiratory: chest non tender, clear to auscultation, normal breath sounds, no respiratory distress, no accessory muscle use Cardiac: regular rate and rhythm, no rub or gallop, no murmur, left leg edema non pitting, no jvd GI/: active bowel sounds, no abd pain or tenderness, soft, non distended Extremities: normal range of motion, normal strength, non tender Neuro/Psych: alert and oriented x 3, normal mood and affect Skin: normal color, dry, left leg erythema Results & Data Results & Data ([facility]) Vital Signs (Past 12 Hours) Vital Signs Temp Pulse Pulse Resp BP BP Pulse Ox 01/28/20 17:30 80 20 145/81 H 99 01/28/20 15:15 36.7 C 75 16 181/80 H 97 Diagnostic Findings US venous doppler LE LT IMPRESSION: 1. Extensive left lower extremity DVT extending from the left iliac vein proximally to the calf veins distally. CT ANGIOGRAPHY OF THE CHEST, PULMONARY EMBOLUS PROTOCOL IMPRESSION: 1. No pulmonary emboli identified. 2. No acute findings within the chest Code Status & VTE Plan VTE Prophylaxis Plan VTE Prophylaxis will be ordered: Yes Supervising Physician Co-Signing Physician Notes I personally saw and examined the patient. I verified all panda points and agree with VIRGINIE Juan with the following exceptions and/or additions: 69 year old male presents to the ER with left leg swelling that suddenly occurred 8 days ago. He has been very mobile since his pelvic fracture in October. Unclear of exacerbating event with sudden onset - he has been exercising more using weight on his ankles but no prolonged activity in one place to explain increased risk of DVT. O/E well appearing, no pain with resisted hip flexion, Left calf circumference > 2 cm right. A/P DVT - Unclear of exacerbating event with sudden onset therefore would consider investigating for compression of iliac vein in his pelvis ?Sherri. Otherwise plan as above. PG Care Time/CCT Total # of Minutes Spent Total Time Spent with Patient: Total time spent is greater than 50% in coordination of care (as documented) at patient's floor/unit and/or counseling patient: Coding Level of Care Code 60858 Initial Inpt Care Lvl 3 Diagnoses DVT (deep venous thrombosis) I82.409 Hyperparathyroidism E21.3 Hypothyroidism E03.9 HTN (hypertension) I10
[2020-01-28] MEDS ORDERED: TRAMADOL HCL 50 MG TABLET PO PRN (19:50)
[2020-01-28] MEDS ORDERED: HEPARIN SODIUM/DEXTROSE 25,000 UNITS/500 ML BAG IV SCH (19:50)
[2020-01-28] MEDS ORDERED: ACETAMINOPHEN 325 MG TAB PO PRN (19:50)
[2020-01-28] MEDS ORDERED: PNEUMOCOCCAL POLYSACCHARIDES 25 MCG/0.5 ML VIAL/SYR IM ONE (20:08)
[2020-01-28] MEDS ORDERED: PNEUMOCOCCAL ADMINISTRATION CHARGE ONE (20:08)
[2020-01-28 20:33] LABS: BUN Creatinine Ratio 16.6 (10-20); Calcium 9.1 mg/dl (8.5-10.1); Creatinine Clr Calc Pharmacy 92.5 ml/min; Est GFR (African American) 105.3; Est GFR (Non-African American) 90.8; Potassium 3.7 mmol/L (3.5-5.1)
[2020-01-28] MEDS: CALCIUM CARBONATE 1250MG TAB PO SCH (21:45)
[2020-01-29 01:00] LABS: Partial Thromboplastin Ratio 2.1
--- NOTE | 2020-01-29 05:41 | Electrocardiogram Report ---
Test Reason : Blood Pressure : / mmHG Vent. Rate : 067 BPM Atrial Rate : 067 BPM P-R Int : 162 ms QRS Dur : 080 ms QT Int : 394 ms P-R-T Axes : 040 036 014 degrees QTc Int : 416 ms Poor data quality, interpretation may be adversely affected Normal sinus rhythm Normal ECG When compared with ECG of 31-OCT-2019 10:18, No significant change was found Confirmed by Brown Veliz ([id number]) on 01/29/2020 5:41:19 AM Referred By: ED Confirmed By:Brown Veliz
[2020-01-29] MEDS: LEVOTHYROXINE SODIUM 112 MCG TABLET PO SCH (05:46)
[2020-01-29 07:56] LABS: Hematocrit (blood only) 40.7 % (42-52); Hemoglobin 13.5 g/dL (14.0-18.0); Mean Corpuscular Hemoglobin 31.5 pg (25-34); Mean Corpuscular Hgb Conc 33.2 g/dL (32-36); Mean Corpuscular Volume 94.9 fL (80-100); Mean Platelet Volume 9.8 fL (7.4-10.4); Platelet Count 221 K/uL (130-400); RDW Coefficient of Variation 13.6 % (11.5-14.5); RDW Standard Deviation 46.9 fL (36.4-46.3); Red Blood Count 4.29 M/uL (4.7-6.1); White Blood Count 6.26 K/uL (4.8-10.8)
[2020-01-29 08:17] LABS: BUN Creatinine Ratio 13.8 (10-20); Calcium 8.8 mg/dl (8.5-10.1); Creatinine Clr Calc Pharmacy 97.5 ml/min; Est GFR (African American) 107.6; Est GFR (Non-African American) 92.8; Potassium 4.2 mmol/L (3.5-5.1)
[2020-01-29] MEDS: CALCIUM CARBONATE 1250MG TAB PO SCH ×2 (08:19→21:21)
[2020-01-29] MEDS: lisinopriL 5 MG TAB PO SCH (08:20)
[2020-01-29] MEDS: hydroCHLOROthiazide 25 MG TAB PO SCH (08:20)
[2020-01-29] MEDS: ASCORBIC ACID 500 MG TAB PO SCH (08:20)
[2020-01-29] MEDS: CHOLECALCIFEROL 1,000 UNITS 25 MCG TAB PO SCH (08:20)
[2020-01-29] MEDS: MAGNESIUM OXIDE 400 MG TAB PO SCH (08:21)
[2020-01-29 08:26] LABS: Partial Thromboplastin Ratio 1.9; Prothrombin Time 10.6 Seconds (9.0-12.0)
[2020-01-29 08:28] LABS: Partial Thromboplastin Time 54.4 Seconds (21.0-31.0)
[2020-01-29] MEDS ORDERED: SODIUM CHLORIDE 0.9% 1000ML 1,000 ML IV SCH (09:15)
--- NOTE | 2020-01-29 09:31 | Consultation ---
Date of Consultation January 29, 2020 Assessment & Plan (1) DVT (deep venous thrombosis): Pt with extensive DVT of LLE. Has no significant pain and edema is moderate. Pt discussed with Dr Ayala, recommends another 2-3 days of IV heparin due to extensive thrombus, then d/c on oral AC. Choice of AC up to medicine. Also recommend pt wear thigh high compression stockings daily until edema resolved. Orthotics consult ordered. No indications for vascular surgical intervention at this time. Please call if needed. Agree with exam and treatment plan of the Vascular PA. Affected thrombotic vein of extremity: unspecified vein of extremity Chronicity: acute DVT location: lower extremity Laterality: left Qualified Code(s): I82.402 - Acute embolism and thrombosis of unspecified deep veins of left lower extremity History of Present Illness Reason for Consultation: LLE DVT Attending Physician: Devin Bateman DO History of Present Illness 69 yo m with hx of HTN, previous L pop vein DVT after a L knee injury in remote past, hypothyroidism, hyperparathyroidism, and more recently with L sided pelvic fracture in October 2019, seen in consultation today after pt noted increasing edema of LLE for 1 wk prior to arrival. Pt denies any associated pain and states the edema is already improving since admission. He was discharged to inpt rehab at [facility] after his pelvic fx and has recently returned home. Was on prophylactic lovenox until Dec 12. Pt states previous DVT was in L pop vein and provoked by a L knee injury at the time, was on coumadin for 6 months, then stopped. No other hx of DVT. Pt denies HEWITT, fever, chills, chest pain, SOB, abd pain, N/V, rest pain, claudication, other complaints. Pt has prior smoking hx, quit 35 yr ago. Pt states has been weight bearing on LLE with a walker since beginning of December. Venous US of LLE demonstrates extensive DVT of iliac to calf veins. CTA chest demonstrates no PE. Allergies Allergy/AdvReac Type Severity Reaction Status Date / Time No Known Allergies Allergy Verified 01/28/20 18:24 Home Medications Home Medications Medication Instructions Recorded Confirmed Type glucosamine sulfate [Glucosamine] 2,000 mg PO DAILY@1200 10/30/19 01/28/20 His tory hydrochlorothiazide 12.5 mg PO QAM 10/30/19 01/28/20 History levothyroxine 112 mcg PO QAM 10/30/19 01/28/20 History lisinopril 5 mg PO QAM 10/30/19 01/28/20 History lutein 20 mg PO DAILY 10/30/19 01/28/20 History omega 3-yjh-ylp-fish oil [Fish Oil] 1 cap PO DAILY 10/30/19 01/28/20 History sildenafil 100 mg PO DAILY PRN 10/30/19 01/28/20 History vitamin E 400 unit PO DAILY 10/30/19 01/28/20 History tramadol 50 mg PO Q4H PRN #20 tab 11/02/19 01/28/20 Rx ascorbic acid (vitamin C) 500 mg PO DAILY 01/28/20 01/28/20 History aspirin 650 mg PO Q8H PRN 01/28/20 01/28/20 History calcium carbonate 500 mg PO BID 01/28/20 01/28/20 History cholecalciferol (vitamin D3) 4,000 unit PO DAILY 01/28/20 01/28/20 History ibuprofen 400 mg PO QAM 01/28/20 01/28/20 History magnesium oxide 250 mg PO QAM 01/28/20 01/28/20 History Patient History Medical History DVT (deep venous thrombosis) HTN (hypertension) Hypothyroidism Syncopal episodes Social History Smoking Status: Former smoker Tobacco Type: Cigarettes Do You Dip or Chew Tobacco: No; Hx Alcohol Use: Yes Alcohol type: hard liquor Hx Substance Use: No Preferred Language: Norwegian Communication Ability: Effective Supervisor Stone Required: No Beliefs That Will Affect Care: None marital status: Current Living Situation: Spouse Feels Safe at Home: Yes Review of Systems Review of Systems: All systems reviewed & are unremarkable except as noted in HPI & below Physical Exam Constitutional: WD/WN, vitals as above healthy appearing, cooperative and comfortable; not in distress Eyes: PERRL, conjunctivae normal, anicteric sclerae ENMT: Ears: no hearing impairment and no external ear abnormality Neck: normal visual inspection and trachea midline Respiratory: normal respiratory effort, lungs clear to auscultation Cardiovascular: Rate/Rhythm: regular rate and regular rhythm Vessels: femoral pulses present, posterior tibial pulses present, dorsalis pedis pulses present, brachial pulses present and radial pulses present; + abnormal peripheral pulses Extremities: normal capillary refill and + edema (LLE thigh to ankle, soft edema, +2) Gastrointestinal (Abdomen): normal bowel sounds, soft, nontender, no hepatosplenomegaly Musculoskeletal: no cyanosis or clubbing, extremities motor strength 5/5 Skin: no rashes, warm and dry Neurologic: moves all extremities and awake; no focal motor deficits and not confused Psychiatric: A+Ox3, euthymic affect Results & Data ([facility]) Vital Signs (Past 12 Hours) Vital Signs Temp Pulse Pulse Resp BP Pulse Ox 01/29/20 07:31 61 01/29/20 07:00 36.4 C L 68 20 156/83 H 99 01/29/20 03:56 36.5 C 66 18 147/77 H 95 01/29/20 01:21 70 01/28/20 23:00 36.6 C 72 18 134/77 96
[2020-01-29] MEDS ORDERED: IOVERSOL 100ml IV ONE (10:20)
--- NOTE | 2020-01-29 10:43 | CT Scan Report ---
CT abdomen pelvis veno w con CT DOSE: 501.92 mGy.cm CLINICAL HISTORY: Extensive left lower extremity DVT. Evaluate for pelvic mass/compression TECHNIQUE: Patient was scanned in a dynamic helical fashion during intravenous administration of 94 c c of Optiray 320. A dose lowering technique was utilized adhering to the principles of ALARA. COMPARISON STUDY: 10/30/2019 FINDINGS: Images to the lung bases reveal a small sliding hiatal hernia. There are calcified left lower lobe gr anulomas. There is no pleural effusion. There are scattered hepatic granulomas. There are no suspicious hepatic masses. The hepatic and chandni l veins appear patent. There is no ductal dilatation. The gallbladder appears normal. There are scattered granulomatous splenic calcifications. No pancreatic masses are visualized. No adrenal masses are visualized. There are subcentimeter renal hypodensities likely representing cysts. No solid renal masses are visu alized. There are no transition zones indicate bowel obstruction. There is no evidence of acute appendicitis. There is extensive sigmoid diverticulosis. There is equivocal minimal peridiverticular inflammatory stranding. There is no evidence for abscess. There is no free intraperitoneal air. There is no ascites. There is a tiny fat-containing umbilical h ernia. There are small fat-containing left inguinal hernia. There is no evidence of pathologic adenopathy. There is no evidence of abdominal aortic aneurysm. There is thrombus present within the left external iliac and common femoral and superficial femoral v eins. There is no evidence for vascular compression. There are no pathologic pelvic masses. There is mild prostatomegaly. There is borderline bladder wall thickening. There are healing left ischio pubic and acetabular fractures. There is also a healing left sacral fra cture. IMPRESSION: 1. Extensive DVT involving the left external iliac, common femoral, and superficial femoral veins. 2. No evidence of pathologic pelvic mass or vascular compression 3. Healing left pelvic fractures 4. No evidence of bowel obstruction. No evidence of free air 5. Extensive diverticulosis with equivocal minimal sigmoid diverticulitis. 6. Prostatomegaly and mild bladder wall thickening ACT 112: Negative or not required by law. Electronically signed by: Giorgio Atkinson M.D. 01/29/2020 10:41 AM
[2020-01-29] MEDS: HEPARIN SODIUM/DEXTROSE 25,000 UNITS/500 ML BAG IV SCH (12:19)
--- NOTE | 2020-01-29 13:29 | Hospitalist Progress Note ---
Date of Service January 29, 2020 Assessment & Plan (1) DVT (deep venous thrombosis): Doppler showing extensive left lower extremity DVT from left iliac vein proximally to the calf veins distally. CT chest without PE Vascular surgery consulted - continue heparin drip for 2-3 days and then transition to oral anticoagulant Risks and benefits of Eliquis discussed and patient is agreeable, prescription sent to [place] as it takes a few days to arrive. He may require a few doses at discharge if he has not received this medication from the [place] yet. CT veno abd/pelvis without mass or vascular compromise. Shows extensive DVT involving the left external iliac, common femoral and superficial femoral veins. Patient has history of DVT 18 years ago - may need lifelong anticoagulation at this point (2) Hyperparathyroidism: Continue calcium and vitamin D supplementation (3) Hypothyroidism: Continue levothyroxine (4) HTN (hypertension): Continue home hctz (5) Diverticulosis: CT abd/pelvis shows extensive diverticulosis with equivocal minimal sigmoid diverticulitis. No symptoms of diverticulitis clinically, will monitor but hold off on treating at this point. Admission and Anticipated Discharge Date Admission Date: January 28, 2020 Subjective Mr. Eduardo is feeling well, not painful in his left leg. ROS Constitutional: no chills, aches, sweats or fever Respiratory: no sob,cough, sputum, or wheezing Cardiac: no chest pain, palpitations, edema, orthopnea or lightheadedness GI: no abdominal pain, nausea, vomiting, diarrhea or constipation : no dysuria or hesitancy Extremities: no joint pain or weakness Skin: no rash All other systems reviewed and negative Physical Exam Physical Exam: General: no distress Eyes: normal inspection, PERLL Respiratory: chest non tender, clear to auscultation, normal breath sounds, no respiratory distress, no accessory muscle use Cardiac: regular rate and rhythm, no rub or gallop, no murmur, left leg edema non pitting, no jvd GI/: active bowel sounds, no abd pain or tenderness, soft, non distended Extremities: normal range of motion, normal strength, non tender Neuro/Psych: alert and oriented x 3, normal mood and affect Skin: normal color, dry Results & Data Results & Data ([facility]) Vital Signs (Past 12 Hours) Vital Signs Temp Pulse Pulse Resp BP Pulse Ox 01/29/20 11:07 36.5 C 63 20 145/84 H 98 01/29/20 07:31 61 01/29/20 07:00 36.4 C L 68 20 156/83 H 99 01/29/20 03:56 36.5 C 66 18 147/77 H 95 PG Care Time/CCT Total # of Minutes Spent Total Time Spent with Patient: Total time spent is greater than 50% in coordination of care (as documented) at patient's floor/unit and/or counseling patient: Coding Level of Care Code 67245 Subseq Hosp Care Lvl 2 Diagnoses DVT (deep venous thrombosis) I82.402 Affected thrombotic vein of extremity: unspecified vein of extremity Chronicity: acute DVT location: lower extremity Laterality: left Hyperparathyroidism E21.3 Hypothyroidism E03.9 HTN (hypertension) I10 Diverticulosis K57.90 (1) DVT (deep venous thrombosis) Affected thrombotic vein of extremity: unspecified vein of extremity Chronicity: acute DVT location: lower extremity Laterality: left Qualified Code(s): I82.402 - Acute embolism and thrombosis of unspecified deep veins of left lower extremity
[2020-01-30] MEDS: LEVOTHYROXINE SODIUM 112 MCG TABLET PO SCH (05:43)
[2020-01-30 06:13] LABS: Prothrombin Time 10.9 Seconds (9.0-12.0)
[2020-01-30 06:19] LABS: Partial Thromboplastin Time 56.5 Seconds (21.0-31.0)
[2020-01-30] MEDS: CALCIUM CARBONATE 1250MG TAB PO SCH ×2 (08:25→21:39)
[2020-01-30] MEDS: hydroCHLOROthiazide 25 MG TAB PO SCH (08:25)
[2020-01-30] MEDS: MAGNESIUM OXIDE 400 MG TAB PO SCH (08:25)
[2020-01-30] MEDS: ASCORBIC ACID 500 MG TAB PO SCH (08:25)
[2020-01-30] MEDS: HEPARIN SODIUM/DEXTROSE 25,000 UNITS/500 ML BAG IV SCH (08:25)
[2020-01-30] MEDS: CHOLECALCIFEROL 1,000 UNITS 25 MCG TAB PO SCH (08:26)
[2020-01-30] MEDS: lisinopriL 5 MG TAB PO SCH (08:26)
--- NOTE | 2020-01-30 17:55 | Hospitalist Progress Note ---
Date of Service January 30, 2020 Assessment & Plan (1) DVT (deep venous thrombosis): Doppler showing extensive left lower extremity DVT from left iliac vein proximally to the calf veins distally. CT chest without PE Vascular surgery consulted - continue heparin drip for 2-3 days and then transition to oral anticoagulant - will transition to Eliquis tomorrow Risks and benefits of Eliquis discussed and patient is agreeable, prescription sent to [place] as it takes a few days to arrive. He may require a few doses at discharge if he has not received this medication from the [place] yet. CT veno abd/pelvis without mass or vascular compromise. Shows extensive DVT involving the left external iliac, common femoral and superficial femoral veins. Patient has history of DVT 18 years ago - may need lifelong anticoagulation at this point (2) Hyperparathyroidism: Continue calcium and vitamin D supplementation (3) Hypothyroidism: Continue levothyroxine (4) HTN (hypertension): Continue home hctz (5) Diverticulosis: CT abd/pelvis shows extensive diverticulosis with equivocal minimal sigmoid diverticulitis. No symptoms of diverticulitis clinically, will monitor but hold off on treating at this point. Admission and Anticipated Discharge Date Admission Date: January 28, 2020 Subjective Mr. Eduardo is feeling well, no complaints, at bedside ROS Constitutional: no chills, aches, sweats or fever Respiratory: no sob,cough, sputum, or wheezing Cardiac: no chest pain, palpitations, edema, orthopnea or lightheadedness GI: no abdominal pain, nausea, vomiting, diarrhea or constipation : no dysuria or hesitancy Extremities: no joint pain or weakness Skin: no rash All other systems reviewed and negative Physical Exam Physical Exam: General: no distress Eyes: normal inspection, PERLL Respiratory: chest non tender, clear to auscultation, normal breath sounds, no respiratory distress, no accessory muscle use Cardiac: regular rate and rhythm, no rub or gallop, no murmur, no edema, no jvd GI/: active bowel sounds, no abd pain or tenderness, soft, non distended Extremities: normal range of motion, normal strength, non tender Neuro/Psych: alert and oriented x 3, normal mood and affect Skin: normal color, dry Results & Data Results & Data ([facility]) Vital Signs (Past 12 Hours) Vital Signs Temp Pulse Pulse Resp BP Pulse Ox 01/30/20 15:00 75 01/30/20 14:27 36.9 C 71 18 146/79 H 97 01/30/20 11:13 37.0 C 70 18 125/79 97 01/30/20 07:45 36.8 C 66 16 146/74 H 95 01/30/20 07:11 55 L PG Care Time/CCT Total # of Minutes Spent Total Time Spent with Patient: Total time spent is greater than 50% in coordination of care (as documented) at patient's floor/unit and/or counseling patient: Coding Level of Care Code 13583 Subseq Hosp Care Lvl 2 Diagnoses DVT (deep venous thrombosis) I82.402 Affected thrombotic vein of extremity: unspecified vein of extremity Chronicity: acute DVT location: lower extremity Laterality: left Hyperparathyroidism E21.3 Hypothyroidism E03.9 HTN (hypertension) I10 Diverticulosis K57.90 (1) DVT (deep venous thrombosis) Affected thrombotic vein of extremity: unspecified vein of extremity Chronicity: acute DVT location: lower extremity Laterality: left Qualified Code(s): I82.402 - Acute embolism and thrombosis of unspecified deep veins of left lower extremity
[2020-01-31] MEDS: HEPARIN SODIUM/DEXTROSE 25,000 UNITS/500 ML BAG IV SCH (02:07)
[2020-01-31 06:08] LABS: Partial Thromboplastin Ratio 2.1; Prothrombin Time 10.9 Seconds (9.0-12.0)
[2020-01-31 06:12] LABS: Partial Thromboplastin Time 58.3 Seconds (21.0-31.0)
[2020-01-31] MEDS: LEVOTHYROXINE SODIUM 112 MCG TABLET PO SCH (06:27)
[2020-01-31] MEDS: MAGNESIUM OXIDE 400 MG TAB PO SCH (08:48)
[2020-01-31] MEDS: ASCORBIC ACID 500 MG TAB PO SCH (08:48)
[2020-01-31] MEDS: CALCIUM CARBONATE 1250MG TAB PO SCH (08:48)
[2020-01-31] MEDS: hydroCHLOROthiazide 25 MG TAB PO SCH (08:48)
[2020-01-31] MEDS: CHOLECALCIFEROL 1,000 UNITS 25 MCG TAB PO SCH (08:49)
[2020-01-31] MEDS: lisinopriL 5 MG TAB PO SCH (08:49)
[2020-01-31] MEDS ORDERED: APIXABAN 5 MG TABLET PO SCH (09:00)
--- NOTE | 2020-01-31 09:51 | Discharge Summary ---
Date of Service January 31, 2020 Admission HPI Per Admitting Provider Mr. Eduardo presents today with a DVT found with ultrasound ordered by his orthopedist. He noticed swelling on Saturday. He was recently admitted to [facility] in October after a fall from a ladder that resulted in a fracture of the left superior and inferior pubic ring extending through the medial wall of the left acetabulum, comminuted fracture of the left sacral ala, right sided lateral eighth and ninth rib fractures, intrapelvic extraperitoneal hemorrhage, left obturator internus hemorrhage. He was discharged to [facility] from [facility]. He was on Lovenox for DVT proph from November 01 to December 12 as ordered by his [facility] physician. He reports that he has been exercising and getting more active this month. He denies aches, chills, fever, sob, cough, chest pain, palpitations, lightheadedness, abdominal pain, n/v/d, dysuria, urinary hesitancy or joint pain. Principal Diagnosis DVT Discharge Exam Constitutional WD/WN, vitals as above Respiratory normal respiratory effort, lungs clear to auscultation Cardiovascular RRR, no murmur, no edema Gastrointestinal (Abdomen) normal bowel sounds, soft, nontender, no hepatosplenomegaly Musculoskeletal no cyanosis or clubbing, extremities motor strength 5/5 Skin no rashes, warm and dry Neurologic moves all extremities and awake Psychiatric A+Ox3, euthymic affect Discharge Data Allergies Allergy/AdvReac Type Severity Reaction Status Date / Time No Known Allergies Allergy Verified 01/28/20 18:24 Consultations 01/28/20 17:40 ED Decision to Admit Stat 01/28/20 19:50 Consult Case Management - Discharge Planning Routine Consult Vascular Surgery Routine Ordered Studies 01/28/20 15:44 CT angio chest PE protocol Stat 01/29/20 09:46 CT abdomen pelvis veno w con Routine Hospital Course (1) DVT (deep venous thrombosis): Doppler showing extensive left lower extremity DVT from left iliac vein proximally to the calf veins distally. CT chest without PE Vascular surgery consulted - placed on heparin drip for 2 days and then transitioned to oral anticoagulant - Eliquis Risks and benefits of Eliquis discussed and patient is agreeable CT veno abd/pelvis without mass or vascular compromise. Shows extensive DVT involving the left external iliac, common femoral and superficial femoral veins. Patient has history of DVT 18 years ago - may need lifelong anticoagulation at this point (2) Hyperparathyroidism: Continue calcium and vitamin D supplementation (3) Hypothyroidism: Continue levothyroxine (4) HTN (hypertension): Continue home hctz (5) Diverticulosis: CT abd/pelvis shows extensive diverticulosis with equivocal minimal sigmoid diverticulitis. No symptoms of diverticulitis clinically - hold off on treating at this point. Educated patient s/s of diverticulitis and when to call his doctor Total Time Total Time Spent Total Time Spent (In Minutes): greater than 30 minutes Discharge Plan Discharge Items Patient Disposition: Home - Self-Care Reason For Visit: DVT Discharge Diagnosis: DVT Activity: Resume your previous activity Non-emergency contact: Primary Care Provider Call non-emergency contact if: you have any medication questions, your symptoms worsen and your pain is not controlled Follow-up/Referrals: Jamal Muller [Primary Care Provider] - (Please follow up in one week) Diet: Heart Healthy Addtl Attending Provider Instructions: (1) DVT (deep venous thrombosis): Imaging showed extensive left lower extremity DVT from left iliac vein to the calf veins. Your CT chest did not show pulmonary embolism Vascular surgery was consulted and you were seen by Juani Liu PA-C - there was no indication for surgical intervention A CT venogram of your abdomen and pelvis was without mass or vascular compromise. Please discuss with your primary care provider how long to maintain anticoagulation but you may need lifelong treatment given that this is your second DVT. You will take apixaban (Eliquis). The initial dose is 10 mg every 12 hours for 7 days. This prescription will be sent to [facility]. After 7 days you can transition to 5 mg twice per day. The initial prescription I sent to the [place] was for 60 tablets (1 month). Be sure your primary care provider refills this prescription for the next month and going forward. While taking Eliquis you should call your doctor right away if you fall or hit your head, if you see blood in your stool or black tarry stools, if you develop little red spots on your skin (petechiae), or if you develop excessive bruising. You may bleed more easily. Be careful and avoid injury. Use a soft toothbrush and an electric razor. Do not to take any cpri-byo-rhbbffk pain medicine except Tylenol (including aspirin, ibuprofen, Motrin, Aleve, Advil, naproxen, diclofenac sodium, oral Voltaren, also not allowed to take fish oil as all of these medications increase your incidence of bleeding) You can take Tylenol as needed for pain but not more than 3000 mg per day as a total dose (that is the maximum of 6 tablet, 500 mg each, divided throughout the day) , if you take more than the total of 3000 mg of Tylenol throughout the day you may damage your liver. (2) Diverticulosis: Your CT abd/pelvis showed extensive diverticulosis (outpouching in the colon) with equivocal minimal sigmoid diverticulitis (inflammation a diverticulum). As you are not having any symptoms (fever, diarrhea, abdominal pain) no treatment is necessary at this time. If you begin to experience any of these symptoms, please contact your doctor as you may require antibiotics. Pending Studies at Discharge: No Stand-Alone Forms: My [facility] [employer], Smoking Cessation Medications and DC Order Prescriptions: New apixaban 5 mg tablet 5 mg PO BID Qty: 60 RF: 1 Eliquis 5 mg tablet 10 mg PO BID 7 Days Qty: 28 RF: 0 Continued ascorbic acid (vitamin C) 500 mg Tablet 500 mg PO DAILY RF: 0 calcium carbonate 500 mg calcium (1,250 mg) Tablet,Chewable 500 mg PO BID RF: 0 cholecalciferol (vitamin D3) 50 mcg (2,000 unit) Capsule 4,000 unit PO DAILY RF: 0 magnesium oxide 250 mg magnesium Tablet 250 mg PO QAM RF: 0 glucosamine sulfate [Glucosamine] 500 mg Tablet 2,000 mg PO DAILY@1200 RF: 0 lisinopril 5 mg Tablet 5 mg PO QAM RF: 0 vitamin E 400 unit Capsule 400 unit PO DAILY RF: 0 levothyroxine 112 mcg Tablet 112 mcg PO QAM RF: 0 lutein 20 mg Capsule 20 mg PO DAILY RF: 0 hydrochlorothiazide 12.5 mg Tablet 12.5 mg PO QAM RF: 0 sildenafil 100 mg Tablet 100 mg PO DAILY PRN (Reason: Erectile Dysfunction) RF: 0 tramadol 50 mg Tablet 50 mg PO Q4H PRN (Reason: pain) Qty: 20 RF: 0 Discontinued aspirin 325 mg Tablet 650 mg PO Q8H PRN (Reason: Pain) RF: 0 ibuprofen 200 mg Tablet 400 mg PO QAM RF: 0 omega 7-axn-ani-fish oil [Fish Oil] 300-1,000 mg Capsule 1 cap PO DAILY RF: 0 Discharge Orders: Discharge Order (Routine); Ordered 01/31/20 Ordered By: Crystal Manley/Other Patient Handouts: Apixaban oral tablets Admission Data Admit Date/Time: 01/28/20 18:40 Attending Provider: Devin Bateman Admit Provider: Damon Wang Primary Care Provider: Jamal Muller Other Providers: Damon Wang ; Louis Ayala Other Interventions: Discharge Summary Assessment (RN) Last Done: 01/31/20 10:40 Supervising Physician Co-Signing Physician Notes Patient seen and examined on the day of discharge. I agree with the discharge summary by Crystal RACHEL. I have reviewed the chart including labs, imaging and plans for discharge. patient feeling well, ambulating in the halls, left leg compression stocking in place eating well, no chest pain, no dyspnea, no fever/chills send home on Eliquis - Left leg DVT treated with heparin drip for 48 hours transition to Eliquis 10mg BID x 7 days then 5mg BID follow up with PCP Coding Level of Care Code D/C Day Management >30 mins Diagnoses DVT (deep venous thrombosis) I82.402 Affected thrombotic vein of extremity: unspecified vein of extremity Chronicity: acute DVT location: lower extremity Laterality: left Hyperparathyroidism E21.3 Hypothyroidism E03.9 HTN (hypertension) I10 Diverticulosis K57.90
== END 2020-01-31 13:16 | disposition home or self-care (01) | DRG 301 ==
LOC: ED 15:03 → SUATTDRO 18:40 → 2N 18:40